=== PATIENT | female | born 1945 | race Caucasian/White ===

== ENCOUNTER → 2016-12-03 | Outpatient (CLI) | payer MEDICARE ==
--- NOTE | 2016-12-05 12:29 | MM ---
Reason for exam: screening (asymptomatic). Last mammogram was performed 1 year and 1 month ago. History: Patient is postmenopausal. Family history of breast cancer in sister at age 59. Benign stereotactic core biopsy of the left breast, June 18, 2002. Cyst aspiration of the left breast. Excisional biopsy of the right breast. Took hormonal contraceptives for 3 years beginning at age 23. Took estrogen for 8 years beginning at age 48. Physical Findings: A clinical breast exam by your physician is recommended on an annual basis and results should be correlated with mammographic findings. MG 3D Screening Mammo W/Cad Bilateral CC and MLO view(s) were taken. Prior study comparison: November 14, 2015, bilateral MG screening mammo w CAD. October 28, 2014, bilateral MG screening mammo w CAD. October 21, 2013, bilateral digital screening mammo w/CAD. There are scattered fibroglandular densities. Previous mammotome biopsy in the left breast. No significant changes when compared with prior studies. ASSESSMENT: Negative, BI-RAD 1 RECOMMENDATION: Routine screening mammogram of both breasts in 1 year.
== END | disposition home or self-care (01) ==
LOC: RADMAMWWP 10:46
PROVIDERS: ATTEND Obstetrics & Gynecology
DX: Z12.31 Encounter for screening mammogram for malignant neoplasm of breast (principal); Z80.3 Family history of malignant neoplasm of breast
CPT/HCPCS: 77063; G0202

== ENCOUNTER → 2018-01-02 | Outpatient (CLI) | payer MEDICARE ==
--- NOTE | 2018-01-02 14:57 | BD ---
EXAMINATION TYPE: MG DEXA axial skeleton. DATE OF EXAM: 01/02/2018 COMPARISON: NONE CLINICAL HISTORY: Height: 66 Weight: 173.3 FRAX RISK QUESTIONS: Alcohol (3 or more units per day): no Family History (Parent hip fracture): no Glucocorticoids (More than 3mos): no (Ex: prednisone, prednisolone, methylprednisolone, dexamethasone, and hydrocortisone). History of Fracture in Adulthood: yes Secondary Osteoporosis: 1. Type 1 Diabetes: no 2. Hyperthyroidism: no 3. Menopause before 45: no 4. Malnutrition: no 5. Chronic liver disease: no Rheumatoid Arthritis: no Current Tobacco Use: no RISK FACTORS HISTORY OF: Surgery to Spine/Hip(right/left)/Wrist (right/left): bilateral hip replacements lumbar surgery-unsure of date Family History of Osteoporosis: no Active: yes Diet low in dairy products/other sources of calcium: yes Postmenopausal woman: menopause at 48 Lost more than 2 inches in height since high school: yes Adrenal Insufficiency: no MEDICATIONS: pain patch, Neurontin, percaset, repinorol. carvidural, prilosec, curtrilene, vitamins Additional History: EXAM MEASUREMENTS: Bone mineral densitometry was performed using the [employer] System. Bone mineral density about the L Wrist (g/cm2): 0.401 T Score values are as follows: -----Dist. R+U: -1.5 -----Prox. R+U: -2.3 -----Radius total: -2.5 Bone mineral density has: decreased -11.5 % since study of: 12.21.2012 IMPRESSION: osteoporosis NOTE: T-SCORE=SD OF THE YOUNG ADULT MEAN.
--- NOTE | 2018-01-06 08:00 | MM ---
Reason for exam: screening (asymptomatic). Last mammogram was performed 1 year and 1 month ago. History: Patient is postmenopausal. Family history of breast cancer in sister at age 59. Benign stereotactic core biopsy of the left breast, June 18, 2002. Cyst aspiration of the left breast. Excisional biopsy of the right breast. Took hormonal contraceptives for 3 years beginning at age 23. Took estrogen for 8 years beginning at age 48. Physical Findings: A clinical breast exam by your physician is recommended on an annual basis and results should be correlated with mammographic findings. MG 3D Screening Mammo W/Cad Bilateral CC and MLO view(s) were taken. Prior study comparison: December 05, 2016, bilateral MG 3d screening mammo w/cad. November 14, 2015, bilateral MG screening mammo w CAD. There are scattered fibroglandular densities. Previous mammotome biopsy in the left breast. No significant changes when compared with prior studies. ASSESSMENT: Negative, BI-RAD 1 RECOMMENDATION: Routine screening mammogram of both breasts in 1 year.
== END | disposition home or self-care (01) ==
LOC: RADMAMWWP 12:33
PROVIDERS: ATTEND Obstetrics & Gynecology
DX: Z12.31 Encounter for screening mammogram for malignant neoplasm of breast (principal); M81.0 Age-related osteoporosis without current pathological fracture; N95.1 Menopausal and female climacteric states; Z80.3 Family history of malignant neoplasm of breast
CPT/HCPCS: 77063; 77067; 77081

== ENCOUNTER 2018-02-02 13:56 | Inpatient (IN) | payer MEDICARE ==
[2018-02-02] MEDS ORDERED: MORPHINE SULFATE 4 MG/0.8 ML SYRINGE (INJ) IVP STA (14:08)
[2018-02-02] MEDS ORDERED: LORazepam 2 MG/ML INJ IV STA (14:08)
--- NOTE | 2018-02-02 14:12 | ED ---
Abdominal Pain HPI - General Stated Complaint: Abd Pain Time Seen by Provider: 02/02/18 14:00 Source: patient, EMS, RN notes reviewed, old records reviewed Mode of arrival: EMS - History of Present Illness Initial Comments: This is a 72-year-old female with a history of multiple small bowel obstructions in the past she relates this to be secondary to having her cecum tacked up to a perforated ulcer she had the past who states she had the onset at 10 AM this morning of abdominal pain was progressive nausea vomiting around 12:30 this afternoon. She states the pain is worse was 7/10 currently is 5/10 she did have 1 episode nausea vomiting and route she was given 4 mg of Zofran with some relief. She denies any fevers chills or sweats. She states it feels like her previous bowel obstructions. Of note she did have a large normal bowel movement earlier today but this did not seem to relate at all to the pain or relieve it. No dysuria no hematuria no flank pain no shortness breath no cough or other symptoms no dysuria no hematuria. No other modifying factors at this time MD Complaint: abdominal pain - Related Data Home Medications Medication Instructions Recorded Confirmed Ascorbic Acid [Vitamin C] 1,000 mg PO DAILY 03/14/15 02/02/18 Carisoprodol [Soma] 350 mg PO TID 03/14/15 02/02/18 Carvedilol [Coreg] 25 mg PO BID 03/14/15 02/02/18 Cholecalciferol [Vitamin D3] 5,000 unit PO DAILY 03/14/15 02/02/18 Cyanocobalamin [Vitamin B-12] 1,000 mcg PO DAILY 03/14/15 02/02/18 Gabapentin [Neurontin] 100 mg PO TID 03/14/15 02/02/18 Levothyroxine Sodium [Synthroid] 175 mcg PO DAILY 03/14/15 02/02/18 Lovastatin [Mevacor] 40 mg PO HS 03/14/15 02/02/18 Multivitamins, Thera [Theragran] 1 tab PO DAILY 03/14/15 02/02/18 [place]-3 Fatty Acids [[place]-3] 1,000 mg PO BID 03/14/15 02/02/18 Omeprazole 40 mg PO DAILY 03/14/15 02/02/18 Sertraline [Zoloft] 100 mg PO HS 03/14/15 02/02/18 Zolpidem [Ambien] 10 mg PO HS PRN 03/14/15 02/02/18 fentaNYL 75MCG/HR PATCH [Duragesic 75 mcg TRANSDERM Q72H 03/14/15 02/02/18 75Mcg/Hr Patch] oxyCODONE HCL/ACETAMINOPHEN 1 tab PO Q6HR PRN 03/14/15 02/02/18 [Percocet 10-325 mg] rOPINIRole HCL [Requip] 2 mg PO TID 03/14/15 02/02/18 Calcium Carbonate 1,500 mg PO DAILY 02/02/18 02/02/18 Magnesium Oxide [Hanson] 1,000 mg PO DAILY 02/02/18 02/02/18 Allergies Allergy/AdvReac Type Severity Reaction Status Date / Time citalopram hydrobromide Allergy Itching Verified 02/02/18 15:14 [From Celexa] diazepam [From Valium] Allergy CHANGE IN Verified 02/02/18 15:14 MENTATION HEAVY METALS Allergy Unknown Uncoded 05/18/15 09:12 Review of Systems ROS Statement: Those systems with pertinent positive or pertinent negative responses have been documented in the HPI. ROS Other: All systems not noted in ROS Statement are negative. Past Medical History Past Medical History: COPD, Fibromyalgia, GERD/Reflux, Hyperlipidemia, Hypertension, Osteoarthritis (OA), Pneumonia, Skin Disorder, Thyroid Disorder Additional Past Medical History / Comment(s): bowel obstructionX8, broken heart syndrome, restless leg syndrome, scoliosis, HEPATITIS A? A CHILD,peptic ulcers, chronic back pain, HX OFgoiter, hashimotos, metalosis, pulmonary hypertension, SKIN DISORDER, ANNULARY GRANULOMA History of Any Multi-Drug Resistant Organisms: None Reported Past Surgical History: Back Surgery, Heart Catheterization, Hernia Repair, Joint Replacement, Orthopedic Surgery, Tubal Ligation Additional Past Surgical History / Comment(s): total thyroidectomy, rt knee arthroscopy, mildred knee replacements, mildred hip replacements with a revison to rt, lumbar fusion l1-s1, cervical fusion,lipoma removed ltarm, pain clinic procedures, neuro stimulator implanted, exploratory laparotomy, cecopexy, biopsy of mesenteric lymph node. Past Anesthesia/Blood Transfusion Reactions: Postoperative Nausea & Vomiting ( PONV) Additional Past Anesthesia/Blood Transfusion Reaction / Comment(s): HX OF ASPIRATION WITH CERVICAL FUSION, Past Psychological History: Anxiety, Depression Additional Psychological History / Comment(s): pt lives by herself, 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 Smoking Status: Former smoker Past Alcohol Use History: Rare Additional Past Alcohol Use History / Comment(s): smoked x 10 years 1ppd, quit in 1990 Past Drug Use History: None Reported - Past Family History Father Family Medical History: Diabetes Mellitus Mother Family Medical History: COPD, Rheumatoid Arthritis (RA) Additional Family Medical History / Comment(s): emphysema, cervical fusions Sister(s) Family Medical History: Cancer, Deep Vein Thrombosis (DVT) Additional Family Medical History / Comment(s): ONE SISTER HX OF DVT, ONE SISTER BREAST CA General Exam - General Exam Comments Initial Comments: This is a well-developed well-nourished awake alert oriented 3 female General appearance: alert, anxious Head exam: Present: atraumatic, normocephalic, normal inspection Eye exam: Present: normal appearance, PERRL, EOMI. Absent: scleral icterus, conjunctival injection, periorbital swelling ENT exam: Present: normal exam, mucous membranes moist Neck exam: Present: normal inspection. Absent: tenderness, meningismus, lymphadenopathy Respiratory exam: Present: normal lung sounds bilaterally. Absent: respiratory distress, wheezes, rales, rhonchi, stridor Cardiovascular Exam: Present: regular rate, normal rhythm, normal heart sounds. Absent: systolic murmur, diastolic murmur, rubs, gallop, clicks GI/Abdominal exam: Present: soft, tenderness, hypoactive bowel sounds. Absent: distended, guarding, rebound, rigid, bruit (Tennis palpation especially over the lower abdomen well-healed surgical scar noted no definite guarding or rebound), pulsatile mass, hernia Rectal exam: Present: deferred Extremities exam: Present: normal inspection, full ROM, normal capillary refill. Absent: tenderness, pedal edema, joint swelling, calf tenderness Back exam: Present: normal inspection Neurological exam: Present: alert, oriented X3, CN II-XII intact Psychiatric exam: Present: normal affect, normal mood Skin exam: Present: warm, dry, intact, normal color. Absent: rash Course Vital Signs 02/02/18 02/02/18 14:15 15:54 Temperature 98.6 F Pulse Rate 55 L 55 L Respiratory 18 18 Rate Blood Pressure 167/83 129/59 O2 Sat by Pulse 92 L 93 L Oximetry - Reevaluation(s) Reevaluation #1: 02/02/18 14:12 Patient is concerned that she threw her medications up and she will develop restless leg syndrome because of the pain which is her normal sequence she states. She can take Ativan she will be given a small dose. Reevaluation #2: 02/02/18 16:15 The patient has a deviated septum and would prefer not to have an NG tube at this time she will get one if she has persistent nausea vomiting. Medical Decision Making - Medical Decision Making I did discuss findings with patient and with Dr. Fabian her the patient will be admitted CAT scan is ordered and pending. I did discuss the findings also the patient she request Dr. Milton - Lab Data Result diagrams: 02/02/18 14:15 02/02/18 14:15 Lab Results 02/02/18 02/02/18 02/02/18 Range/Units 14:15 14:15 14:15 WBC 8.6 (3.8-10.6) k/uL RBC 4.50 (3.80-5.40) m/uL Hgb 13.8 (11.4-16.0) gm/dL Hct 42.1 (34.0-46.0) % MCV 93.5 (80.0-100.0) fL MCH 30.6 (25.0-35.0) pg MCHC 32.7 (31.0-37.0) g/dL RDW 13.3 (11.5-15.5) % Plt Count 207 (150-450) k/uL Neutrophils % 87 % Lymphocytes % 5 % Monocytes % 6 % Eosinophils % 1 % Basophils % 0 % Neutrophils # 7.4 (1.3-7.7) k/uL Lymphocytes # 0.4 L (1.0-4.8) k/uL Monocytes # 0.5 (0-1.0) k/uL Eosinophils # 0.1 (0-0.7) k/uL Basophils # 0.0 (0-0.2) k/uL PT (9.0-12.0) sec INR (<1.2) APTT (22.0-30.0) sec Sodium 145 (137-145) mmol/L Potassium 4.1 (3.5-5.1) mmol/L Chloride 103 (98-107) mmol/L Carbon Dioxide 28 (22-30) mmol/L Anion Gap 14 mmol/L BUN 25 H (7-17) mg/dL Creatinine 0.90 (0.52-1.04) mg/dL Est GFR (CKD-EPI)AfAm 75 (>60 ml/min/1.73 sqM) Est GFR (CKD-EPI)NonAf 65 (>60 ml/min/1.73 sqM) Glucose 103 H (74-99) mg/dL Plasma Lactic Acid Malik (0.7-2.0) mmol/L Calcium 9.6 (8.4-10.2) mg/dL Magnesium 1.8 (1.6-2.3) mg/dL Total Bilirubin 0.7 (0.2-1.3) mg/dL AST 25 (14-36) U/L ALT 20 (9-52) U/L Alkaline Phosphatase 107 (38-126) U/L Total Creatine Kinase 59 (30-135) U/L CK-MB (CK-2) 1.8 (0.0-2.4) ng/mL CK-MB (CK-2) Rel Index 3.1 Troponin I <0.012 (0.000-0.034) ng/mL Total Protein 6.7 (6.3-8.2) g/dL Albumin 4.1 (3.5-5.0) g/dL Amylase 56 (30-110) U/L Lipase 38 (23-300) U/L 02/02/18 02/02/18 Range/Units 14:15 14:15 WBC (3.8-10.6) k/uL RBC (3.80-5.40) m/uL Hgb (11.4-16.0) gm/dL Hct (34.0-46.0) % MCV (80.0-100.0) fL MCH (25.0-35.0) pg MCHC (31.0-37.0) g/dL RDW (11.5-15.5) % Plt Count (150-450) k/uL Neutrophils % % Lymphocytes % % Monocytes % % Eosinophils % % Basophils % % Neutrophils # (1.3-7.7) k/uL Lymphocytes # (1.0-4.8) k/uL Monocytes # (0-1.0) k/uL Eosinophils # (0-0.7) k/uL Basophils # (0-0.2) k/uL PT 10.0 (9.0-12.0) sec INR 1.0 (<1.2) APTT 25.4 (22.0-30.0) sec Sodium (137-145) mmol/L Potassium (3.5-5.1) mmol/L Chloride (98-107) mmol/L Carbon Dioxide (22-30) mmol/L Anion Gap mmol/L BUN (7-17) mg/dL Creatinine (0.52-1.04) mg/dL Est GFR (CKD-EPI)AfAm (>60 ml/min/1.73 sqM) Est GFR (CKD-EPI)NonAf (>60 ml/min/1.73 sqM) Glucose (74-99) mg/dL Plasma Lactic Acid Malik 1.5 (0.7-2.0) mmol/L Calcium (8.4-10.2) mg/dL Magnesium (1.6-2.3) mg/dL Total Bilirubin (0.2-1.3) mg/dL AST (14-36) U/L ALT (9-52) U/L Alkaline Phosphatase (38-126) U/L Total Creatine Kinase (30-135) U/L CK-MB (CK-2) (0.0-2.4) ng/mL CK-MB (CK-2) Rel Index Troponin I (0.000-0.034) ng/mL Total Protein (6.3-8.2) g/dL Albumin (3.5-5.0) g/dL Amylase (30-110) U/L Lipase (23-300) U/L - Radiology Data Radiology results: report reviewed (I did review the imaging and report or is nonspecific gas pattern hour does look like multiple air-fluid levels consistent with early small bowel obstruction.), image reviewed Interpreted by me: I did review the imaging is evidence of air-fluid levels. Disposition Clinical Impression: Small bowel obstruction, Dehydration, Abdominal pain Disposition: ADMITTED IP TO THIS [facility] Condition: Stable Referrals: Geo Low MD [Primary Care Provider] - 1-2 days
[2018-02-02 14:40] LABS: Basophils % (A) 0 %; Eosinophils # (A) 0.1 k/uL (0-0.7); Eosinophils % (A) 1 %; HCT 42.1 % (34.0-46.0); HGB 13.8 gm/dL (11.4-16.0); Lymphocytes # (A) 0.4 k/uL (1.0-4.8); Lymphocytes % (A) 5 %; MCH 30.6 pg (25.0-35.0); MCHC 32.7 g/dL (31.0-37.0); MCV 93.5 fL (80.0-100.0); Mean Platelet Volume 7.5; Monocytes # (A) 0.5 k/uL (0-1.0); Monocytes % (A) 6 %; Neutrophils # (A) 7.4 k/uL (1.3-7.7); Neutrophils % (A) 87 %; Platelet Count 207 k/uL (150-450); RDW 13.3 % (11.5-15.5); WBC 8.6 k/uL (3.8-10.6)
[2018-02-02 14:51] LABS: Albumin 4.1 g/dL (3.5-5.0); Calcium 9.6 mg/dL (8.4-10.2); Magnesium 1.8 mg/dL (1.6-2.3); Partial Thromboplastin Time 25.4 sec (22.0-30.0); Potassium 4.1 mmol/L (3.5-5.1); Total Bilirubin 0.7 mg/dL (0.2-1.3); Total Protein 6.7 g/dL (6.3-8.2)
[2018-02-02 14:56] LABS: Creatine Kinase 59 U/L (30-135)
[2018-02-02 15:09] LABS: Creatine Kinase MB 1.8 ng/mL (0.0-2.4); Troponin I <0.012 ng/mL (0.000-0.034)
--- NOTE | 2018-02-02 15:20 | XR ---
EXAMINATION TYPE: XR abdomen 2V DATE OF EXAM: 02/02/2018 CLINICAL HISTORY: Abdominal pain with progressive vomiting today TECHNIQUE: Supine and upright views of the abdomen are obtained. COMPARISON: Acute abdominal series March 17, 2015. CT abdomen and pelvis March 14, 2015 FINDINGS: There is prominent stomach with air-fluid level. There is gas prominent proximal small rosa l loops in the central abdomen with air-fluid levels. Gas is seen in nondistended distal small bowel loops. There is no pneumoperitoneum or suspicious calcification. Spinal spine stimulator device is r edemonstrated. Metallic hardware from bilateral hip arthroplasty is redemonstrated. There is extensiv e surgical change in the lumbar spine with underlying scoliosis. There is left basilar linear scarrin g or atelectasis. IMPRESSION: Overall nonspecific bowel gas pattern. Cannot rule out developing mid small bowel obstru ction.
[2018-02-02] MEDS ORDERED: RX INFO: IV CONTRAST WAS GIVEN 1 EACH MISC MISCELLANE PRN (15:24)
[2018-02-02] MEDS ORDERED: SODIUM CHLORIDE 0.9% 1,000 ML IV STA (15:24)
[2018-02-02] MEDS ORDERED: IOPAMIDOL-300 CONTRAST 30 ML VIAL (ORAL USE) PO PRN (15:24)
[2018-02-02] MEDS ORDERED: NALOXONE 0.4 MG/ML 1 ML VIAL IV PRN (16:17)
[2018-02-02] MEDS ORDERED: ONDANSETRON 4 MG/2 ML VIAL IVP PRN (16:17)
[2018-02-02] MEDS ORDERED: MORPHINE SULFATE 4 MG/ML SYRINGE IVP PRN (16:17)
[2018-02-02] MEDS: LORazepam 2 MG/ML INJ IV PRN (17:24)
--- NOTE | 2018-02-02 17:45 | CT ---
EXAMINATION TYPE: CT abdomen pelvis w con DATE OF EXAM: 02/02/2018 HISTORY: Generalized abdominal pain with nausea and vomiting. History of bowel obstructions. CT DLP: 1265mGycm Automated Exposure Control for Dose Reduction was Utilized. CONTRAST: CT scan of the abdomen and pelvis is performed with IV Contrast, patient injected with 100 mL of Isov ue M300. COMPARISON: CT abdomen and pelvis March 14, 2015. Same-day abdominal x-ray FINDINGS: LUNG BASES: There is bibasilar linear scarring and/or atelectasis. LIVER/GB: Small amount of perihepatic ascites anteriorly and posteriorly is more prominent from prior . PANCREAS: No significant abnormality is seen. SPLEEN: No significant abnormality is seen. ADRENALS: No significant abnormality is seen. KIDNEYS: Bilateral renal calculi are seen more numerous in the left kidney. BOWEL: Oral contrast extends to the mid small bowel level. Contrast is seen in prominent stomach. The re is no suspicious dilatation of duodenal sweep. Proximal jejunal loops are mildly prominent. There are more prominent in dilated mid small bowel loops enter contrast and fluid-filled. There are dilate d fluid-filled distal small bowel loops with multiple air-fluid levels. Fecal material is seen in non distended colon along the periphery. Terminal ileum is decompressed in the right lower quadrant. UTERUS/ADNEXA: Uterus is not well seen and may be surgically absent. LYMPH NODES: No greater than 1cm abdominal or pelvic lymph nodes are appreciated. OSSEOUS STRUCTURES: Metallic hardware from bilateral hip arthroplasties causes streak artifact limiti ng evaluation of pelvic structures. Extensive surgical hardware in the lumbar spine is redemonstrated . There is persistent rotary scoliosis. Spinal stimulator device is redemonstrated. OTHER: Numerous coils left inguinal region are likely product of prior hernia repair surgery. Promine nce of the ventral wall is redemonstrated. IMPRESSION: Findings are consistent with developing distal small bowel obstruction. Transition point is not clearly identified as there is suboptimal evaluation of pelvis due to metallic hardware from h ip surgery. Consider NG tube placement and surgical consultation.
--- NOTE | 2018-02-02 18:38 | P.HPIM ---
History of Present Illness H&P Date: 02/02/18 Chief Complaint: small bowel obstruction This is a 72-year-old female one of Dr. Low with a previous medical history significant for osteoarthritis with multiple joint replacement and multiple orthopedic surgeries in the past along with chronic low back pain and back surgery as well as chronic pain syndrome with hypertension and hypertensive cardio vascular disease, restless leg syndrome, hypothyroidism, recurrent small bowel obstruction, heavy metal toxicity, broken heart syndrome, patient was in her usual state of health about yesterday when she had a few [place] and cranberry scones along with almond, woke up today the morning complaining of increase in bowel pain associated with increased nausea with significant heartburn and she had vomited once and she ended up coming to the emergency room because she has had multiple bowel obstruction and she goes the symptoms patient ended up coming to the ER had x-ray of the abdomen that showed small bowel obstruction this was followed by a computed tomography scan of the abdomen and pelvis that showed a distal small bowel obstruction with transition cannot be delineated at this point in time, NG tube was placed and the patient was admitted to the hospital Gen. surgeon consultation was obtained. Review of Systems Constitutional: Reports chronic headaches, Reports chronic pain, Reports weight gain, Denies lethargy, Denies weakness, Denies weight loss Eyes: denies blurred vision, denies bulging eye, denies decreased vision Ears: deny: decreased hearing Ears, nose, mouth and throat: Denies dysphagia, Denies neck lump, Denies sore throat Cardiovascular: Reports high blood pressure, Denies chest pain, Denies decreased exercise tolerance, Denies dyspnea on exertion, Denies rapid heart beat, Denies shortness of breath, Denies syncope Respiratory: Denies congestion, Denies cough with sputum, Denies home oxygen, Denies sleep apnea, Denies snoring, Denies wheezing Gastrointestinal: Reports abdominal pain, Reports belching, Reports bloating, Reports dyspepsia, Reports heartburn, Reports nausea, Reports vomiting, Denies melena Genitourinary: Denies dysuria, Denies hematuria Menstruation: Reports postmenopausal Musculoskeletal: Reports low back pain Musculoskeletal: bilateral: foot pain, foot stiffness, hand stiffness, hip stiffness, hip swelling, knee pain, knee stiffness, shoulder pain, shoulder stiffness, wrist pain, wrist stiffness, absent: ankle pain, ankle stiffness, ankle swelling, elbow pain, elbow stiffness, elbow swelling, foot swelling, hand pain, hand swelling, hip pain, wrist swelling Integumentary: Denies pruritus, Denies rash Neurological: Denies numbness, Denies weakness Psychiatric: Denies anxiety, Denies depression Endocrine: Denies fatigue, Denies weight change Past Medical History Past Medical History: Asthma, Chest Pain / Angina, COPD, GERD/Reflux, Hyperlipidemia, Hypertension, Osteoarthritis (OA), Pneumonia, Skin Disorder, Thyroid Disorder Additional Past Medical History / Comment(s): bowel obstruction 12, broken heart syndrome, restless leg syndrome, scoliosis, HEPATITIS A? A CHILD, peptic ulcers, chronic back pain, HX OF goiter, kiko, ANNULARY GRANULOMA, osteoporosis, djd, rls, History of Any Multi-Drug Resistant Organisms: None Reported Past Surgical History: Back Surgery, Heart Catheterization, Hernia Repair, Joint Replacement, Orthopedic Surgery, Tubal Ligation Additional Past Surgical History / Comment(s): total thyroidectomy, rt knee arthroscopy, mildred knee replacements, mildred hip replacements with a revison to rt, lumbar fusion l1-s1, cervical fusion,lipoma removed ltarm, pain clinic procedures, neuro stimulator implanted, exploratory laparotomy, cecopexy, biopsy of mesenteric lymph node- neg, breast bx mildred-neg,repair of perforated ulcer(sx done at [facility]), mildred foot reconstructive sx -rt side done x2 Past Anesthesia/Blood Transfusion Reactions: Postoperative Nausea & Vomiting ( PONV) Additional Past Anesthesia/Blood Transfusion Reaction / Comment(s): HX OF ASPIRATION WITH CERVICAL FUSION, Smoking Status: Former smoker - Past Family History Father Family Medical History: Diabetes Mellitus (father at age of 62 from diabetes and congestive heart failure.) Mother Family Medical History: COPD, Rheumatoid Arthritis (RA) (mother at age of 68 from chronic obstructive pulmonary disease and rheumatoid arthritis.) Additional Family Medical History / Comment(s): emphysema, cervical fusions Sister(s) Family Medical History: Cancer, Deep Vein Thrombosis (DVT) (patient has 3 sisters all are living one with DVT the other one with breast cancer.) Additional Family Medical History / Comment(s): ONE SISTER HX OF DVT, ONE SISTER BREAST CA Daughter(s) Family Medical History: No Reported History (patient has a daughter no major medical problem) Son(s) Family Medical History: No Reported History (patient has 2 sons no major medical problems) Medications and Allergies Home Medications Medication Instructions Recorded Confirmed Type Ascorbic Acid [Vitamin C] 1,000 mg PO DAILY 03/14/15 02/02/18 History Carisoprodol [Soma] 350 mg PO TID 03/14/15 02/02/18 History Carvedilol [Coreg] 25 mg PO BID 03/14/15 02/02/18 History Cholecalciferol [Vitamin D3] 5,000 unit PO DAILY 03/14/15 02/02/18 History Cyanocobalamin [Vitamin B-12] 1,000 mcg PO DAILY 03/14/15 02/02/18 History Gabapentin [Neurontin] 100 mg PO TID 03/14/15 02/02/18 History Levothyroxine Sodium [Synthroid] 175 mcg PO DAILY 03/14/15 02/02/18 History Lovastatin [Mevacor] 40 mg PO HS 03/14/15 02/02/18 History Multivitamins, Thera [Theragran] 1 tab PO DAILY 03/14/15 02/02/18 History [place]-3 Fatty Acids [[place]-3] 1,000 mg PO BID 03/14/15 02/02/18 History Omeprazole 40 mg PO DAILY 03/14/15 02/02/18 History Sertraline [Zoloft] 100 mg PO HS 03/14/15 02/02/18 History Zolpidem [Ambien] 10 mg PO HS PRN 03/14/15 02/02/18 History fentaNYL 75MCG/HR PATCH [Duragesic 75 mcg TRANSDERM Q72H 03/14/15 02/02/18 History 75Mcg/Hr Patch] oxyCODONE HCL/ACETAMINOPHEN 1 tab PO Q6HR PRN 03/14/15 02/02/18 History [Percocet 10-325 mg] rOPINIRole HCL [Requip] 2 mg PO TID 03/14/15 02/02/18 History Calcium Carbonate 1,500 mg PO DAILY 02/02/18 02/02/18 History Magnesium Oxide [Hanson] 1,000 mg PO DAILY 02/02/18 02/02/18 History Allergies Allergy/AdvReac Type Severity Reaction Status Date / Time citalopram hydrobromide Allergy Itching Verified 02/02/18 15:14 [From Celexa] diazepam [From Valium] Allergy CHANGE IN Verified 02/02/18 15:14 MENTATION HEAVY METALS Allergy Unknown Uncoded 05/18/15 09:12 Physical Exam Vitals: Vital Signs Temp Pulse Resp BP Pulse Ox 02/02/18 17:26 64 18 175/84 92 L 02/02/18 15:54 55 L 18 129/59 93 L 02/02/18 14:15 98.6 F 55 L 18 167/83 92 L Intake and Output 02/02/18 02/02/18 02/02/18 06:59 14:59 22:59 Other: Weight 79.379 kg - Constitutional General appearance: average body habitus, mild distress - EENT Eyes: anicteric sclerae, EOMI, PERRLA, no ptosis, no scleral icterus, normal appearance ENT: hearing grossly normal, NA/AT, normal oropharynx, no thrush - Neck Neck: no lymphadenopathy, normal ROM, no rigidity, no stridor, no thyromegaly Carotids: bilateral: upstroke normal Thyroid: bilateral: normal size - Respiratory Respiratory: bilateral: diminished, negative: dullness, rales, rhonchi, wheezing , prolonged expiration, prolonged inspiration - Cardiovascular Rhythm: regular Heart sounds: normal: S1, S2 Abnormal Heart Sounds: systolic murmur, no S3 Gallop - Gastrointestinal General gastrointestinal: distended, hyperactive bowel sounds, tenderness, no umbilical hernia, no ventral hernia - Integumentary Integumentary: normal, normal turgor - Neurologic Neurologic: CNII-XII intact - Musculoskeletal Musculoskeletal: strength equal bilaterally - Psychiatric Psychiatric: A&O x's 3, appropriate affect, intact judgment & insight Results CBC & Chem 7: 02/02/18 14:15 02/02/18 14:15 Labs: Abnormal Lab Results - Last 24 Hours (Table) 02/02/18 02/02/18 Range/Units 14:15 14:15 Lymphocytes # 0.4 L (1.0-4.8) k/uL BUN 25 H (7-17) mg/dL Glucose 103 H (74-99) mg/dL Thrombosis Risk Factor Assmnt - DVT/VTE Prophylaxis DVT/VTE Prophylaxis: Pharmacologic Prophylaxis ordered, Mechanical Prophylaxis ordered Assessment and Plan Assessment: Assessment and plan: 1. Small bowel obstruction. NG tube in place, started the patient on IV fluid resuscitation the form of D5 half-normal saline with 20 KCl at 125 mL an hour, continue pain management with morphine 2 mg IV push every 4 hours as needed, continue patient on Zofran 4 mg push every 4 hours as needed, general surgery consultation, nothing per mouth at this point. 2. Hypertension and hypertensive cardiovascular disease. Hold off Coreg for now monitor the patient blood pressure very closely. We may start the patient on Vasotec 1.25 mg IV push every every 6 hours as needed for systolic greater than 160. 3. Hypothyroidism. Switch the patient to Synthroid 75 g IV push every 24 hours. 4. Hyperlipidemia. Hold off lovastatin. 5. Chronic pain syndrome. Continue fentanyl patch 75 g every 72 hours, continue with morphine 2 mg IV push every 4 hours as needed. 6. 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 Stable at this time. 7. Pulmonary hypertension with a prior history of broken heart syndrome stable at this time. 8. Severe GERD. Continue patient on Protonix 40 mg IV push every 24 hours. 9. DVT prophylaxis. Lovenox 40 mg subcutaneously every 24 hours. 10. GI prophylaxis. Continue patient on Protonix 40 mg IV push every 24 hours. 11. Patient is full code per 12. Admit to inpatient. Estimate a length of stay 2 midnights.
[2018-02-02 18:58] LABS: Appearance,Urine Clear (Clear); Bilirubin,Urine Negative (Negative); Blood,Urine Negative (Negative); Color,Urine Yellow; Glucose,Urine (UA) Negative (Negative); Ketones,Urine 1+ (Negative); Leukocyte Esterase,Urine Negative (Negative); Nitrite,Urine Negative (Negative); Protein,Urine Trace (Negative); Specific Gravity,Urine 1.038 (1.001-1.035); Urobilinogen,Urine <2.0 mg/dL (<2.0)
[2018-02-02] MEDS: MORPHINE SULFATE 4 MG/ML SYRINGE IVP PRN (20:25)
[2018-02-02] MEDS: SODIUM CHLORIDE 0.9% 1,000 ML IV SCH (21:12)
[2018-02-02] MEDS: PANTOPRAZOLE 40 MG/10 ML VIAL IV SCH (21:12)
[2018-02-03] MEDS: MORPHINE SULFATE 4 MG/ML SYRINGE IVP PRN ×3 (00:38→16:52)
[2018-02-03] MEDS: LORazepam 2 MG/ML INJ IV PRN ×3 (03:14→21:05)
[2018-02-03 08:33] LABS: HGB 11.4 gm/dL (11.4-16.0); MCH 30.5 pg (25.0-35.0); MCHC 32.6 g/dL (31.0-37.0); MCV 93.6 fL (80.0-100.0); Mean Platelet Volume 7.8; Platelet Count 158 k/uL (150-450); RBC 3.74 m/uL (3.80-5.40); RDW 13.5 % (11.5-15.5); WBC 4.1 k/uL (3.8-10.6)
[2018-02-03 09:05] LABS: Albumin 3.1 g/dL (3.5-5.0); Calcium 8.5 mg/dL (8.4-10.2); Potassium 3.9 mmol/L (3.5-5.1); Total Bilirubin 0.8 mg/dL (0.2-1.3); Total Protein 5.4 g/dL (6.3-8.2)
[2018-02-03] MEDS: SODIUM CHLORIDE 0.9% 1,000 ML IV SCH ×4 (09:13→23:30)
[2018-02-03] MEDS: PANTOPRAZOLE 40 MG/10 ML VIAL IV SCH ×2 (09:22→20:35)
[2018-02-03] MEDS: ENOXAPARIN 40 MG/0.4 ML SYRINGE SQ SCH (09:22)
[2018-02-03 09:35] LABS: Band Neutrophils % 10 %; Eosinophils # (M) 0.16 k/uL (0-0.7); Hypochromasia (M) Present; Lymphocytes # (M) 0.94 k/uL (1.0-4.8); Monocytes # (M) 0.45 k/uL (0-1.0); Neutrophils % (M) 52 %; Nucleated Red Blood Cells 0 /100 WBC (0-0); Total Cells Counted 100
--- NOTE | 2018-02-03 12:53 | P.GSCN ---
History of Present Illness Consult date: 02/03/18 Reason for Consult: Bowel obstruction History of present illness: Patient is a 72-year-old female with a history of prior small bowel obstruction. She states that she has had 12 different bowel obstructions in the past. During one of her earlier episodes she had an exploratory laparotomy with a cecopexy done by Dr. Patiño. Her only other abdominal exploration was for a perforated ulcer in the past. Her last episode was 1-2 years ago. She began feeling ill yesterday morning. Her pain and distention along with vomiting progressed through the day. She did have a normal bowel movement yesterday. CAT scan was reviewed and does show evidence of small bowel obstruction. Nasogastric tube was placed. Between vomiting and the nasogastric tube placement she had over 1 L output. She does feel somewhat better today. She is not interested in surgical intervention if this can be avoided as she has a trip planned later this month. White blood cell count normal however the patient does have 10% bands on today CBC. No tachycardia. No fevers. Review of Systems The patient denies any acute changes in vision or hearing, no dysphagia or odynophagia, no chest pain or shortness of breath, no dysuria or hematuria, no headache, no runny nose, no rectal bleeding or melena, no unexplained weight loss Past Medical History Past Medical History: Asthma, Chest Pain / Angina, COPD, GERD/Reflux, Hyperlipidemia, Hypertension, Osteoarthritis (OA), Pneumonia, Skin Disorder, Thyroid Disorder Additional Past Medical History / Comment(s): bowel obstruction 12, broken heart syndrome, restless leg syndrome, scoliosis, HEPATITIS A? A CHILD, peptic ulcers, chronic back pain, HX OF goiter, kiko, ANNULARY GRANULOMA, osteoporosis, djd, rls, History of Any Multi-Drug Resistant Organisms: None Reported Past Surgical History: Back Surgery, Heart Catheterization, Hernia Repair, Joint Replacement, Orthopedic Surgery, Tubal Ligation Additional Past Surgical History / Comment(s): total thyroidectomy, rt knee arthroscopy, mildred knee replacements, mildred hip replacements with a revison to rt, lumbar fusion l1-s1, cervical fusion,lipoma removed ltarm, pain clinic procedures, neuro stimulator implanted, exploratory laparotomy, cecopexy, biopsy of mesenteric lymph node- neg, breast bx mildred-neg,repair of perforated ulcer(sx done at [facility]), mildred foot reconstructive sx -rt side done x2 Past Anesthesia/Blood Transfusion Reactions: Postoperative Nausea & Vomiting ( PONV) Additional Past Anesthesia/Blood Transfusion Reaction / Comm: HX OF ASPIRATION WITH CERVICAL FUSION, Smoking Status: Former smoker - Past Family History Daughter(s) Family Medical History: No Reported History (patient has a daughter no major medical problem) Son(s) Family Medical History: No Reported History (patient has 2 sons no major medical problems) Father Family Medical History: Diabetes Mellitus (father at age of 62 from diabetes and congestive heart failure.) Mother Family Medical History: COPD, Rheumatoid Arthritis (RA) (mother at age of 68 from chronic obstructive pulmonary disease and rheumatoid arthritis.) Additional Family Medical History / Comment(s): emphysema, cervical fusions Sister(s) Family Medical History: Cancer, Deep Vein Thrombosis (DVT) (patient has 3 sisters all are living one with DVT the other one with breast cancer.) Additional Family Medical History / Comment(s): ONE SISTER HX OF DVT, ONE SISTER BREAST CA Medications and Allergies Home Medications Medication Instructions Recorded Confirmed Type Ascorbic Acid [Vitamin C] 1,000 mg PO DAILY 03/14/15 02/02/18 History Carisoprodol [Soma] 350 mg PO TID 03/14/15 02/02/18 History Carvedilol [Coreg] 25 mg PO BID 03/14/15 02/02/18 History Cholecalciferol [Vitamin D3] 5,000 unit PO DAILY 03/14/15 02/02/18 History Cyanocobalamin [Vitamin B-12] 1,000 mcg PO DAILY 03/14/15 02/02/18 History Gabapentin [Neurontin] 100 mg PO TID 03/14/15 02/02/18 History Levothyroxine Sodium [Synthroid] 175 mcg PO DAILY 03/14/15 02/02/18 History Lovastatin [Mevacor] 40 mg PO HS 03/14/15 02/02/18 History Multivitamins, Thera [Theragran] 1 tab PO DAILY 03/14/15 02/02/18 History [place]-3 Fatty Acids [[place]-3] 1,000 mg PO BID 03/14/15 02/02/18 History Omeprazole 40 mg PO DAILY 03/14/15 02/02/18 History Sertraline [Zoloft] 100 mg PO HS 03/14/15 02/02/18 History Zolpidem [Ambien] 10 mg PO HS PRN 03/14/15 02/02/18 History fentaNYL 75MCG/HR PATCH [Duragesic 75 mcg TRANSDERM Q72H 03/14/15 02/02/18 History 75Mcg/Hr Patch] oxyCODONE HCL/ACETAMINOPHEN 1 tab PO Q6HR PRN 03/14/15 02/02/18 History [Percocet 10-325 mg] rOPINIRole HCL [Requip] 2 mg PO TID 03/14/15 02/02/18 History Calcium Carbonate 1,500 mg PO DAILY 02/02/18 02/02/18 History Magnesium Oxide [Hanson] 1,000 mg PO DAILY 02/02/18 02/02/18 History Allergies Allergy/AdvReac Type Severity Reaction Status Date / Time citalopram hydrobromide Allergy Itching Verified 02/02/18 15:14 [From Celexa] diazepam [From Valium] Allergy CHANGE IN Verified 02/02/18 15:14 MENTATION HEAVY METALS Allergy Unknown Uncoded 05/18/15 09:12 Surgical - Exam Vital Signs Temp Pulse Resp BP Pulse Ox 98.6 F 55 L 18 167/83 92 L 02/02/18 14:15 02/02/18 14:15 02/02/18 14:15 02/02/18 14:15 02/02/18 14:15 Physical exam: General: Well-developed, well-nourished HEENT: Normocephalic, sclerae nonicteric Abdomen: Mild to moderate diffuse tenderness, no rebound or guarding, mild distention, previous scars noted Extremities: No edema Neuro: Alert and oriented Results - Labs 02/03/18 08:18 02/03/18 08:18 Abnormal Lab Results - Last 24 Hours (Table) 02/02/18 02/02/18 02/02/18 Range/Units 14:15 14:15 18:41 RBC (3.80-5.40) m/uL Lymphocytes # 0.4 L (1.0-4.8) k/uL Lymphocytes # (Manual) (1.0-4.8) k/uL Carbon Dioxide (22-30) mmol/L BUN 25 H (7-17) mg/dL Glucose 103 H (74-99) mg/dL Total Protein (6.3-8.2) g/dL Albumin (3.5-5.0) g/dL Ur Specific [place] 1.038 H (1.001-1.035) Urine Protein Trace H (Negative) Urine Ketones 1+ H (Negative) 02/03/18 02/03/18 Range/Units 08:18 08:18 RBC 3.74 L (3.80-5.40) m/uL Lymphocytes # (1.0-4.8) k/uL Lymphocytes # (Manual) 0.94 L (1.0-4.8) k/uL Carbon Dioxide 31 H (22-30) mmol/L BUN 24 H (7-17) mg/dL Glucose (74-99) mg/dL Total Protein 5.4 L (6.3-8.2) g/dL Albumin 3.1 L (3.5-5.0) g/dL Ur Specific [place] (1.001-1.035) Urine Protein (Negative) Urine Ketones (Negative) Diabetes panel 02/02/18 02/03/18 Range/Units 14:15 08:18 Sodium 145 143 (137-145) mmol/L Potassium 4.1 3.9 (3.5-5.1) mmol/L Chloride 103 102 (98-107) mmol/L Carbon Dioxide 28 31 H (22-30) mmol/L BUN 25 H 24 H (7-17) mg/dL Creatinine 0.90 0.85 (0.52-1.04) mg/dL Glucose 103 H 85 (74-99) mg/dL Calcium 9.6 8.5 (8.4-10.2) mg/dL AST 25 21 (14-36) U/L ALT 20 22 (9-52) U/L Alkaline Phosphatase 107 77 (38-126) U/L Total Protein 6.7 5.4 L (6.3-8.2) g/dL Albumin 4.1 3.1 L (3.5-5.0) g/dL Calcium panel 02/02/18 02/03/18 Range/Units 14:15 08:18 Calcium 9.6 8.5 (8.4-10.2) mg/dL Albumin 4.1 3.1 L (3.5-5.0) g/dL Pituitary panel 02/02/18 02/03/18 Range/Units 14:15 08:18 Sodium 145 143 (137-145) mmol/L Potassium 4.1 3.9 (3.5-5.1) mmol/L Chloride 103 102 (98-107) mmol/L Carbon Dioxide 28 31 H (22-30) mmol/L BUN 25 H 24 H (7-17) mg/dL Creatinine 0.90 0.85 (0.52-1.04) mg/dL Glucose 103 H 85 (74-99) mg/dL Calcium 9.6 8.5 (8.4-10.2) mg/dL Adrenal panel 02/02/18 02/03/18 Range/Units 14:15 08:18 Sodium 145 143 (137-145) mmol/L Potassium 4.1 3.9 (3.5-5.1) mmol/L Chloride 103 102 (98-107) mmol/L Carbon Dioxide 28 31 H (22-30) mmol/L BUN 25 H 24 H (7-17) mg/dL Creatinine 0.90 0.85 (0.52-1.04) mg/dL Glucose 103 H 85 (74-99) mg/dL Calcium 9.6 8.5 (8.4-10.2) mg/dL Total Bilirubin 0.7 0.8 (0.2-1.3) mg/dL AST 25 21 (14-36) U/L ALT 20 22 (9-52) U/L Alkaline Phosphatase 107 77 (38-126) U/L Total Protein 6.7 5.4 L (6.3-8.2) g/dL Albumin 4.1 3.1 L (3.5-5.0) g/dL Assessment and Plan (1) Small bowel obstruction Narrative/Plan: Patient was small bowel junction. Likely related to intra-abdominal adhesions. We'll repeat abdominal x-rays tomorrow. Repeat labs tomorrow. If patient's tenderness does not improve or the patient develops leukocytosis or persistent obstruction would proceed with laparotomy. 7 Current Visit: Yes Status: Acute Code(s): K56.69 - OTHER INTESTINAL OBSTRUCTION * DO NOT USE * SNOMED Code(s): 771603561
--- NOTE | 2018-02-03 20:02 | P.PN ---
Subjective Progress Note Date: 02/03/18 This is a 72-year-old female one of Dr. Low with a previous medical history significant for osteoarthritis with multiple joint replacement and multiple orthopedic surgeries in the past along with chronic low back pain and back surgery as well as chronic pain syndrome with hypertension and hypertensive cardio vascular disease, restless leg syndrome, hypothyroidism, recurrent small bowel obstruction, heavy metal toxicity, broken heart syndrome, patient was in her usual state of health about yesterday when she had a few [place] and cranberry scones along with almond, woke up today the morning complaining of increase in bowel pain associated with increased nausea with significant heartburn and she had vomited once and she ended up coming to the emergency room because she has had multiple bowel obstruction and she goes the symptoms patient ended up coming to the ER had x-ray of the abdomen that showed small bowel obstruction this was followed by a computed tomography scan of the abdomen and pelvis that showed a distal small bowel obstruction with transition cannot be delineated at this point in time, NG tube was placed and the patient was admitted to the hospital Gen. surgeon consultation was obtained. 02/03: Patient remains nothing by mouth. Dr. Milton is on consult. He plans for repeat abdominal x-rays tomorrow and if her abdominal tenderness does not improve or the patient develops leukocytosis or persistent obstruction he would proceed with laparotomy. WBC 4.1, patient has been afebrile. VS stable. Objective - Vital Signs Vital signs: Vital Signs Temp 97.7 F 02/03/18 07:40 Pulse 67 02/03/18 07:40 Resp 18 02/03/18 07:40 BP 107/55 02/03/18 07:40 Pulse Ox 97 02/03/18 07:40 Intake & Output 02/02/18 02/03/18 02/03/18 18:59 06:59 18:59 Intake Total 1100 Balance 1100 Weight 79.379 kg Intake: Amount of Fluid Infused ( 1100 ml) Other: Voiding Method Toilet - Exam General appearance: average body habitus, mild distress - EENT Eyes: anicteric sclerae, EOMI, PERRLA, no ptosis, no scleral icterus, normal appearance ENT: hearing grossly normal, NA/AT, normal oropharynx, no thrush - Neck Neck: no lymphadenopathy, normal ROM, no rigidity, no stridor, no thyromegaly Carotids: bilateral: upstroke normal Thyroid: bilateral: normal size - Respiratory Respiratory: bilateral: diminished, negative: dullness, rales, rhonchi, wheezing , prolonged expiration, prolonged inspiration - Cardiovascular Rhythm: regular Heart sounds: normal: S1, S2 Abnormal Heart Sounds: systolic murmur, no S3 Gallop - Gastrointestinal General gastrointestinal: distended, hyperactive bowel sounds, tenderness, no umbilical hernia, no ventral hernia - Integumentary Integumentary: normal, normal turgor - Neurologic Neurologic: CNII-XII intact - Musculoskeletal Musculoskeletal: strength equal bilaterally - Psychiatric Psychiatric: A&O x's 3, appropriate affect, intact judgment & insight - Labs CBC & Chem 7: 02/03/18 08:18 02/03/18 08:18 Labs: Abnormal Lab Results - Last 24 Hours (Table) 02/02/18 02/02/18 02/02/18 Range/Units 14:15 14:15 18:41 RBC (3.80-5.40) m/uL Lymphocytes # 0.4 L (1.0-4.8) k/uL Lymphocytes # (Manual) (1.0-4.8) k/uL Carbon Dioxide (22-30) mmol/L BUN 25 H (7-17) mg/dL Glucose 103 H (74-99) mg/dL Total Protein (6.3-8.2) g/dL Albumin (3.5-5.0) g/dL Ur Specific [place] 1.038 H (1.001-1.035) Urine Protein Trace H (Negative) Urine Ketones 1+ H (Negative) 02/03/18 02/03/18 Range/Units 08:18 08:18 RBC 3.74 L (3.80-5.40) m/uL Lymphocytes # (1.0-4.8) k/uL Lymphocytes # (Manual) 0.94 L (1.0-4.8) k/uL Carbon Dioxide 31 H (22-30) mmol/L BUN 24 H (7-17) mg/dL Glucose (74-99) mg/dL Total Protein 5.4 L (6.3-8.2) g/dL Albumin 3.1 L (3.5-5.0) g/dL Ur Specific [place] (1.001-1.035) Urine Protein (Negative) Urine Ketones (Negative) Assessment and Plan Plan: 1. Small bowel obstruction. NG tube in place, started the patient on IV fluid resuscitation the form of D5 half-normal saline with 20 KCl at 125 mL an hour, continue pain management with morphine 2 mg IV push every 4 hours as needed, continue patient on Zofran 4 mg push every 4 hours as needed, consult with Dr Karine simeon. Repeat abdominal x-rays in the morning. 2. Hypertension and hypertensive cardiovascular disease. Hold off Coreg for now monitor the patient blood pressure very closely. We may start the patient on Vasotec 1.25 mg IV push every every 6 hours as needed for systolic greater than 160. 3. Hypothyroidism. Switch the patient to Synthroid 75 g IV push every 24 hours. 4. Hyperlipidemia. Hold off lovastatin. 5. Chronic pain syndrome. Continue fentanyl patch 75 g every 72 hours, continue with morphine 2 mg IV push every 4 hours as needed. 6. 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 Stable at this time. 7. Pulmonary hypertension with a prior history of broken heart syndrome stable at this time. 8. Severe GERD. Continue patient on Protonix 40 mg IV push every 24 hours. 9. DVT prophylaxis. Lovenox 40 mg subcutaneously every 24 hours. 10. GI prophylaxis. Continue patient on Protonix 40 mg IV push every 24 hours. 11. Patient is full code Discharge plan: Return home Impression and plan of care have been directed as dictated by the signing physician. Jill Baron nurse practitioner acting as scribe for signing physician.
[2018-02-04] MEDS: MORPHINE SULFATE 4 MG/ML SYRINGE IVP PRN ×4 (03:11→23:08)
[2018-02-04] MEDS: LORazepam 2 MG/ML INJ IV PRN ×3 (06:17→18:29)
[2018-02-04] MEDS: ENOXAPARIN 40 MG/0.4 ML SYRINGE SQ SCH (08:15)
[2018-02-04] MEDS: PANTOPRAZOLE 40 MG/10 ML VIAL IV SCH ×2 (08:15→21:05)
--- NOTE | 2018-02-04 08:17 | P.PN ---
Subjective Progress Note Date: 02/04/18 Principal diagnosis: Small bowel obstruction Patient feels much better today. Pain is mild at this time. She did have multiple loose stools that she says were either dark green or black. Today's x- ray appear improved although the report is pending. Today's labs are pending. She is afebrile without tachycardia. Objective - Vital Signs Vital signs: Vital Signs Temp 97.5 F L 02/04/18 07:47 Pulse 59 L 02/04/18 07:47 Resp 16 02/04/18 07:47 BP 154/70 02/04/18 07:47 Pulse Ox 94 L 02/04/18 07:47 Intake & Output 02/03/18 02/04/18 02/04/18 18:59 06:59 18:59 Intake Total 600 1375 Balance 600 1375 Weight 79.379 kg Intake: Intake, IV Titration 600 1375 Amount Sodium Chloride 0.9% 1, 600 1375 000 ml @ 125 mls/hr IV . Q8H [facility] Rx#:[id number] Oral 0 Other: Voiding Method Toilet Toilet # Voids 5 2 1 # Bowel Movements 1 - Exam Abdomen: Soft, mild diffuse tenderness much improved from yesterday. Nondistended - Labs CBC & Chem 7: 02/03/18 08:18 02/03/18 08:18 Labs: Abnormal Lab Results - Last 24 Hours (Table) 02/03/18 02/03/18 Range/Units 08:18 08:18 RBC 3.74 L (3.80-5.40) m/uL Lymphocytes # (Manual) 0.94 L (1.0-4.8) k/uL Carbon Dioxide 31 H (22-30) mmol/L BUN 24 H (7-17) mg/dL Total Protein 5.4 L (6.3-8.2) g/dL Albumin 3.1 L (3.5-5.0) g/dL Assessment and Plan (1) Small bowel obstruction Narrative/Plan: Keep nasogastric tube to low intermittent suction. Check morning labs. Check flat plate dictation. Current Visit: Yes Status: Acute Code(s): K56.69 - OTHER INTESTINAL OBSTRUCTION * DO NOT USE * SNOMED Code(s): 083610685
--- NOTE | 2018-02-04 08:17 | XR ---
EXAMINATION TYPE: XR abdomen complete w decub DATE OF EXAM: 02/04/2018 COMPARISON: 02/02/2018 HISTORY: Follow-up obstruction TECHNIQUE: Supine, upright, and left side down lateral decubitus views of the abdomen are obtained. FINDINGS: Postsurgical changes are noted. Stimulator device seen. Postsurgical change involving the v ertebral, and hips. Bowel gas pattern is nonspecific. Main a few prominent small bowel loops within the midabdomen. Subse gmental consolidation at the left lung base. Degenerative change and scoliotic curvature of the spine . IMPRESSION: 1. Nonspecific abdomen. The remaining a few prominent small bowel loops in the mid abdomen. Partial o bstruction remains in the differential diagnosis. 2. Left basilar atelectasis favored over infiltrate.
[2018-02-04] MEDS: SODIUM CHLORIDE 0.9% 1,000 ML IV SCH ×2 (08:22→17:55)
[2018-02-04 08:29] LABS: Basophils % (A) 0 %; Eosinophils # (A) 0.1 k/uL (0-0.7); Eosinophils % (A) 4 %; HCT 32.9 % (34.0-46.0); HGB 10.5 gm/dL (11.4-16.0); Lymphocytes # (A) 0.7 k/uL (1.0-4.8); Lymphocytes % (A) 22 %; MCH 30.5 pg (25.0-35.0); MCHC 32.1 g/dL (31.0-37.0); MCV 95.1 fL (80.0-100.0); Mean Platelet Volume 7.7; Monocytes # (A) 0.4 k/uL (0-1.0); Monocytes % (A) 11 %; Neutrophils % (A) 59 %; Platelet Count 149 k/uL (150-450); RBC 3.45 m/uL (3.80-5.40); RDW 13.5 % (11.5-15.5); WBC 3.3 k/uL (3.8-10.6)
[2018-02-04 08:44] LABS: Anion Gap 14 mmol/L; Blood Urea Nitrogen 21 mg/dL (7-17); Calcium 8.1 mg/dL (8.4-10.2); Carbon Dioxide 21 mmol/L (22-30); Chloride 109 mmol/L (98-107); Glucose 61 mg/dL (74-99); Potassium 3.7 mmol/L (3.5-5.1); Sodium 144 mmol/L (137-145)
--- NOTE | 2018-02-04 13:03 | P.PN ---
Subjective Progress Note Date: 02/04/18 This is a 72-year-old female one of Dr. Low with a previous medical history significant for osteoarthritis with multiple joint replacement and multiple orthopedic surgeries in the past along with chronic low back pain and back surgery as well as chronic pain syndrome with hypertension and hypertensive cardio vascular disease, restless leg syndrome, hypothyroidism, recurrent small bowel obstruction, heavy metal toxicity, broken heart syndrome, patient was in her usual state of health about yesterday when she had a few [place] and cranberry scones along with almond, woke up today the morning complaining of increase in bowel pain associated with increased nausea with significant heartburn and she had vomited once and she ended up coming to the emergency room because she has had multiple bowel obstruction and she goes the symptoms patient ended up coming to the ER had x-ray of the abdomen that showed small bowel obstruction this was followed by a computed tomography scan of the abdomen and pelvis that showed a distal small bowel obstruction with transition cannot be delineated at this point in time, NG tube was placed and the patient was admitted to the hospital Gen. surgeon consultation was obtained. 02/03: Patient remains nothing by mouth. Dr. Milton is on consult. He plans for repeat abdominal x-rays tomorrow and if her abdominal tenderness does not improve or the patient develops leukocytosis or persistent obstruction he would proceed with laparotomy. WBC 4.1, patient has been afebrile. VS stable. 02/04: Patient is having multiple loose stools. Her abdominal pain is improved today. She has been afebrile. Repeat abdominal x-ray that revealed nonspecific abdomen. The remaining a few prominent small bowel loops in the mid abdomen. Partial obstruction remains in the differential. Left basilar atelectasis favored over infiltrate. Dr. Milton is planning for continued conservative management. Incentive spirometry will be added. patient's NG tube came out when she was sneezing and it has been ordered to be replaced by Dr. Milton. Objective - Vital Signs Vital signs: Vital Signs Temp 97.5 F L 02/04/18 07:47 Pulse 59 L 02/04/18 07:47 Resp 16 02/04/18 07:47 BP 154/70 02/04/18 07:47 Pulse Ox 94 L 02/04/18 07:47 Intake & Output 02/03/18 02/04/18 02/04/18 18:59 06:59 18:59 Intake Total 600 1375 Balance 600 1375 Weight 79.379 kg Intake: Intake, IV Titration 600 1375 Amount Sodium Chloride 0.9% 1, 600 1375 000 ml @ 125 mls/hr IV . Q8H [facility] Rx#:[id number] Oral 0 Other: Voiding Method Toilet Toilet # Voids 5 2 1 # Bowel Movements 1 - Exam General appearance: average body habitus, mild distress - EENT Eyes: anicteric sclerae, EOMI, PERRLA, no ptosis, no scleral icterus, normal appearance ENT: hearing grossly normal, NA/AT, normal oropharynx, no thrush - Neck Neck: no lymphadenopathy, normal ROM, no rigidity, no stridor, no thyromegaly Carotids: bilateral: upstroke normal Thyroid: bilateral: normal size - Respiratory Respiratory: bilateral: diminished, negative: dullness, rales, rhonchi, wheezing , prolonged expiration, prolonged inspiration - Cardiovascular Rhythm: regular Heart sounds: normal: S1, S2 Abnormal Heart Sounds: systolic murmur, no S3 Gallop - Gastrointestinal General gastrointestinal: distended, hyperactive bowel sounds, tenderness, no umbilical hernia, no ventral hernia - Integumentary Integumentary: normal, normal turgor - Neurologic Neurologic: CNII-XII intact - Musculoskeletal Musculoskeletal: strength equal bilaterally - Psychiatric Psychiatric: A&O x's 3, appropriate affect, intact judgment & insight - Labs CBC & Chem 7: 02/04/18 08:08 02/04/18 08:08 Labs: Abnormal Lab Results - Last 24 Hours (Table) 02/03/18 02/04/18 02/04/18 Range/Units 08:18 08:08 08:08 WBC 3.3 L (3.8-10.6) k/uL RBC 3.45 L (3.80-5.40) m/uL Hgb 10.5 L (11.4-16.0) gm/dL Hct 32.9 L (34.0-46.0) % Plt Count 149 L (150-450) k/uL Lymphocytes # 0.7 L (1.0-4.8) k/uL Lymphocytes # (Manual) 0.94 L (1.0-4.8) k/uL Chloride 109 H (98-107) mmol/L Carbon Dioxide 21 L (22-30) mmol/L BUN 21 H (7-17) mg/dL Glucose 61 L (74-99) mg/dL Calcium 8.1 L (8.4-10.2) mg/dL Assessment and Plan Plan: 1. Small bowel obstruction. NG tube in place, D5 half-normal saline with 20 KCl at 125 mL an hour, continue pain management with morphine 2 mg IV push every 4 hours as needed, continue patient on Zofran 4 mg push every 4 hours as needed, consult with Dr Karine simeon. Repeat abdominal x-rays as above. Continue conservative management. 2. Hypertension and hypertensive cardiovascular disease. Hold off Coreg for now monitor the patient blood pressure very closely. We may start the patient on Vasotec 1.25 mg IV push every every 6 hours as needed for systolic greater than 160. 3. Hypothyroidism. Switch the patient to Synthroid 75 g IV push every 24 hours. 4. Hyperlipidemia. Hold off lovastatin. 5. Chronic pain syndrome. Continue fentanyl patch 75 g every 72 hours, continue with morphine 2 mg IV push every 4 hours as needed. 6. 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 Stable at this time. 7. Pulmonary hypertension with a prior history of broken heart syndrome stable at this time. 8. Severe GERD. Continue patient on Protonix 40 mg IV push every 24 hours. 9. DVT prophylaxis. Lovenox 40 mg subcutaneously every 24 hours. 10. GI prophylaxis. Continue patient on Protonix 40 mg IV push every 24 hours. 11. Patient is full code Discharge plan: Return home Impression and plan of care have been directed as dictated by the signing physician. Jill Baron nurse practitioner acting as scribe for signing physician.
[2018-02-05] MEDS: SODIUM CHLORIDE 0.9% 1,000 ML IV SCH ×2 (02:43→07:46)
[2018-02-05] MEDS: LORazepam 2 MG/ML INJ IV PRN ×3 (02:44→20:40)
[2018-02-05] MEDS: ENOXAPARIN 40 MG/0.4 ML SYRINGE SQ SCH (07:46)
[2018-02-05] MEDS: PANTOPRAZOLE 40 MG/10 ML VIAL IV SCH ×2 (07:46→20:40)
[2018-02-05 08:34] LABS: HCT 33.6 % (34.0-46.0); HGB 10.9 gm/dL (11.4-16.0); MCH 30.3 pg (25.0-35.0); MCHC 32.3 g/dL (31.0-37.0); Platelet Count 172 k/uL (150-450); RBC 3.58 m/uL (3.80-5.40); RDW 13.5 % (11.5-15.5); WBC 5.7 k/uL (3.8-10.6)
[2018-02-05 09:56] LABS: Anion Gap 18 mmol/L; Blood Urea Nitrogen 14 mg/dL (7-17); Calcium 8.5 mg/dL (8.4-10.2); Carbon Dioxide 17 mmol/L (22-30); Chloride 109 mmol/L (98-107); Potassium 3.7 mmol/L (3.5-5.1); Sodium 144 mmol/L (137-145)
[2018-02-05 10:03] LABS: Glucose 44 mg/dL (74-99)
[2018-02-05] MEDS ORDERED: DEXTROSE 50%-WATER 50 ML SYRINGE IVP ONE (10:20)
[2018-02-05] MEDS ORDERED: DEXTROSE 5%-0.9% NACL 1,000 ML IV SCH (10:30)
[2018-02-05 10:36] LABS: Glucose,Whole Blood 56 mg/dL (75-99)
[2018-02-05 10:43] LABS: Glucose,Whole Blood 120 mg/dL (75-99)
--- NOTE | 2018-02-05 11:33 | P.PN ---
<Laurie Valiente - Last Filed: 02/05/18 11:23> Subjective Progress Note Date: 02/05/18 72-year-old female seen at the bedside nasal gastric tube in place connected to suction 200 out for the last 8 hours states is passing gas no stool this morning currently is denying abdominal discomfort when questioning states is anxious to have the nasogastric tube removed this morning labs reviewed noted low blood sugars otherwise unremarkable conservative management for small bowel obstruction Objective - Vital Signs Vital signs: Vital Signs Temp 97.6 F 02/05/18 08:50 Pulse 61 02/05/18 08:50 Resp 16 02/05/18 08:50 BP 141/72 02/05/18 08:50 Pulse Ox 94 L 02/05/18 08:50 Intake & Output 02/04/18 02/05/18 02/05/18 18:59 06:59 18:59 Intake Total 750 Output Total 300 Balance 450 Intake: Intake, IV Titration 750 Amount Sodium Chloride 0.9% 1, 750 000 ml @ 125 mls/hr IV . Q8H [facility] Rx#:[id number] Oral 0 Output: Gastric Drainage 300 Other: Voiding Method Toilet Toilet Toilet # Voids 3 1 # Bowel Movements 1 - Exam Physical exam Pleasant 72-year-old female alert oriented 3 resting in bed chief complaint "bothersome having the tube in place" Lungs bilaterally good air movement on room air no shortness of breath no cough Heart S1-S2 audible and regular Abdomen soft mild diffuse tenderness not distended few hypoactive bowel tones states urinating no difficulty passing gas rectally no stool nasal gastric tube in place 200 mL for the past 8 hours Extremities no edema noted - Labs CBC & Chem 7: 02/05/18 07:58 02/05/18 07:58 Labs: Abnormal Lab Results - Last 24 Hours (Table) 02/05/18 02/05/18 02/05/18 Range/Units 07:58 07:58 10:16 RBC 3.58 L (3.80-5.40) m/uL Hgb 10.9 L (11.4-16.0) gm/dL Hct 33.6 L (34.0-46.0) % Chloride 109 H (98-107) mmol/L Carbon Dioxide 17 L (22-30) mmol/L Glucose 44 L* (74-99) mg/dL POC Glucose (mg/dL) 56 L (75-99) mg/dL 02/05/18 Range/Units 10:40 RBC (3.80-5.40) m/uL Hgb (11.4-16.0) gm/dL Hct (34.0-46.0) % Chloride (98-107) mmol/L Carbon Dioxide (22-30) mmol/L Glucose (74-99) mg/dL POC Glucose (mg/dL) 120 H (75-99) mg/dL Assessment and Plan Assessment: Impression Present on admission abdominal pain with vomiting suspect due to Small bowel obstruction History of prior small bowel obstructions CAT scan abdomen pelvis show evidence of a small bowel obstruction Plan IV fluid for hydration Continue the nasal gastric tube to suction Continue conservative management for treatment of the small bowel obstruction Will follow with you The above impression and plan of care have been discussed and directed by signing physician. Laurie Valiente nurse practitioner acting as scribe for signing physician. <Sav Milton - Last Filed: 02/05/18 16:59> Objective - Vital Signs Vital signs: Vital Signs Temp 97.3 F L 02/05/18 15:14 Pulse 62 02/05/18 15:14 Resp 16 02/05/18 15:14 BP 187/85 02/05/18 15:14 Pulse Ox 96 02/05/18 15:14 Intake & Output 02/04/18 02/05/18 02/05/18 18:59 06:59 18:59 Intake Total 750 Output Total 300 Balance 450 Intake: Intake, IV Titration 750 Amount Sodium Chloride 0.9% 1, 750 000 ml @ 125 mls/hr IV . Q8H [facility] Rx#:[id number] Oral 0 Output: Gastric Drainage 300 Other: Voiding Method Toilet Toilet Toilet # Voids 3 1 # Bowel Movements 1 - Labs CBC & Chem 7: 02/05/18 07:58 02/05/18 07:58 Labs: Abnormal Lab Results - Last 24 Hours (Table) 02/05/18 02/05/18 02/05/18 Range/Units 07:58 07:58 10:16 RBC 3.58 L (3.80-5.40) m/uL Hgb 10.9 L (11.4-16.0) gm/dL Hct 33.6 L (34.0-46.0) % Chloride 109 H (98-107) mmol/L Carbon Dioxide 17 L (22-30) mmol/L Glucose 44 L* (74-99) mg/dL POC Glucose (mg/dL) 56 L (75-99) mg/dL 02/05/18 Range/Units 10:40 RBC (3.80-5.40) m/uL Hgb (11.4-16.0) gm/dL Hct (34.0-46.0) % Chloride (98-107) mmol/L Carbon Dioxide (22-30) mmol/L Glucose (74-99) mg/dL POC Glucose (mg/dL) 120 H (75-99) mg/dL Assessment and Plan Assessment: As above. Patient's bowel obstruction appears clinically improved. She is having liquid stools today. Denies abdominal pain currently. Nasogastric tube output is decreased. We'll remove nasogastric tube. Begin clear liquids. (1) Small bowel obstruction Current Visit: Yes Status: Acute Code(s): K56.69 - OTHER INTESTINAL OBSTRUCTION * DO NOT USE * SNOMED Code(s): 288507389
[2018-02-05] MEDS: MORPHINE SULFATE 4 MG/ML SYRINGE IVP PRN (13:34)
--- NOTE | 2018-02-05 14:25 | P.PN ---
Subjective Progress Note Date: 02/05/18 This is a 72-year-old female one of Dr. Low with a previous medical history significant for osteoarthritis with multiple joint replacement and multiple orthopedic surgeries in the past along with chronic low back pain and back surgery as well as chronic pain syndrome with hypertension and hypertensive cardio vascular disease, restless leg syndrome, hypothyroidism, recurrent small bowel obstruction, heavy metal toxicity, broken heart syndrome, patient was in her usual state of health about yesterday when she had a few [place] and cranberry scones along with almond, woke up today the morning complaining of increase in bowel pain associated with increased nausea with significant heartburn and she had vomited once and she ended up coming to the emergency room because she has had multiple bowel obstruction and she goes the symptoms patient ended up coming to the ER had x-ray of the abdomen that showed small bowel obstruction this was followed by a computed tomography scan of the abdomen and pelvis that showed a distal small bowel obstruction with transition cannot be delineated at this point in time, NG tube was placed and the patient was admitted to the hospital Gen. surgeon consultation was obtained. 02/03: Patient remains nothing by mouth. Dr. Milton is on consult. He plans for repeat abdominal x-rays tomorrow and if her abdominal tenderness does not improve or the patient develops leukocytosis or persistent obstruction he would proceed with laparotomy. WBC 4.1, patient has been afebrile. VS stable. 02/04: Patient is having multiple loose stools. Her abdominal pain is improved today. She has been afebrile. Repeat abdominal x-ray that revealed nonspecific abdomen. The remaining a few prominent small bowel loops in the mid abdomen. Partial obstruction remains in the differential. Left basilar atelectasis favored over infiltrate. Dr. Milton is planning for continued conservative management. Incentive spirometry will be added. patient's NG tube came out when she was sneezing and it has been ordered to be replaced by Dr. Milton. 02/05: Patient remains with NG tube in place. She states she has some improvement of her abdominal pain. She is anxious to have the NG tube removed. Patient had bout of hypoglycemia today with a blood sugar of 44. IV fluids changed over to D5 0.9 normal saline. White count is normal at 5.7. Objective - Vital Signs Vital signs: Vital Signs Temp 97.6 F 02/05/18 08:50 Pulse 61 02/05/18 08:50 Resp 16 02/05/18 08:50 BP 141/72 02/05/18 08:50 Pulse Ox 94 L 02/05/18 08:50 Intake & Output 02/04/18 02/05/18 02/05/18 18:59 06:59 18:59 Intake Total 750 Output Total 300 Balance 450 Intake: Intake, IV Titration 750 Amount Sodium Chloride 0.9% 1, 750 000 ml @ 125 mls/hr IV . Q8H [facility] Rx#:[id number] Oral 0 Output: Gastric Drainage 300 Other: Voiding Method Toilet Toilet Toilet # Voids 3 1 # Bowel Movements 1 - Exam General appearance: average body habitus, mild distress - EENT Eyes: anicteric sclerae, EOMI, PERRLA, no ptosis, no scleral icterus, normal appearance ENT: hearing grossly normal, NA/AT, normal oropharynx, no thrush - Neck Neck: no lymphadenopathy, normal ROM, no rigidity, no stridor, no thyromegaly Carotids: bilateral: upstroke normal Thyroid: bilateral: normal size - Respiratory Respiratory: bilateral: diminished, negative: dullness, rales, rhonchi, wheezing , prolonged expiration, prolonged inspiration - Cardiovascular Rhythm: regular Heart sounds: normal: S1, S2 Abnormal Heart Sounds: systolic murmur, no S3 Gallop - Gastrointestinal General gastrointestinal: distended, hyperactive bowel sounds, tenderness, no umbilical hernia, no ventral hernia - Integumentary Integumentary: normal, normal turgor - Neurologic Neurologic: CNII-XII intact - Musculoskeletal Musculoskeletal: strength equal bilaterally - Psychiatric Psychiatric: A&O x's 3, appropriate affect, intact judgment & insight - Labs CBC & Chem 7: 02/05/18 07:58 02/05/18 07:58 Labs: Abnormal Lab Results - Last 24 Hours (Table) 02/05/18 Range/Units 07:58 RBC 3.58 L (3.80-5.40) m/uL Hgb 10.9 L (11.4-16.0) gm/dL Hct 33.6 L (34.0-46.0) % Assessment and Plan Plan: 1. Small bowel obstruction. NG tube in place, D5 half-normal saline with 20 KCl at 125 mL an hour, continue pain management with morphine 2 mg IV push every 4 hours as needed, continue patient on Zofran 4 mg push every 4 hours as needed, consult with Dr Karine simeon. Repeat abdominal x-rays as above. Continue conservative management. 2. Hypertension and hypertensive cardiovascular disease. Hold off Coreg for now monitor the patient blood pressure very closely. We may start the patient on Vasotec 1.25 mg IV push every every 6 hours as needed for systolic greater than 160. 3. Hypothyroidism. Switch the patient to Synthroid 75 g IV push every 24 hours. 4. Hyperlipidemia. Hold off lovastatin. 5. Chronic pain syndrome. Continue fentanyl patch 75 g every 72 hours, continue with morphine 2 mg IV push every 4 hours as needed. 6. 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 Stable at this time. 7. Pulmonary hypertension with a prior history of broken heart syndrome stable at this time. 8. Severe GERD. Continue patient on Protonix 40 mg IV push every 24 hours. 9. DVT prophylaxis. Lovenox 40 mg subcutaneously every 24 hours. 10. GI prophylaxis. Continue patient on Protonix 40 mg IV push every 24 hours. 11. Episode of hypoglycemia. IV fluids changed to D5 half-normal saline with KCl 125 mL per hour. Patient is full code Discharge plan: Return home Impression and plan of care have been directed as dictated by the signing physician. Jill Baron nurse practitioner acting as scribe for signing physician.
[2018-02-05] MEDS ORDERED: ZOLPIDEM 10 MG TAB PO PRN (15:10)
[2018-02-05] MEDS ORDERED: oxyCODONE-APAP 10-325MG 1 EACH TAB PO PRN (15:10)
[2018-02-05] MEDS ORDERED: D5-0.45% NACL WITH KCL 20MEQ/L 1,000 ML IV SCH (15:30)
[2018-02-05] MEDS: CARVEDILOL 12.5 MG TAB PO SCH (16:56)
[2018-02-05] MEDS: GABAPENTIN 100 MG CAP PO SCH ×2 (16:56→20:39)
[2018-02-05] MEDS ORDERED: FUROSEMIDE 10 MG/ML 2 ML VIAL IV ONE (19:19)
[2018-02-05] MEDS ORDERED: SERTRALINE 100 MG TAB PO SCH (21:00)
[2018-02-06] MEDS ORDERED: LEVOTHYROXINE 100 MCG TAB PO SCH (06:30)
[2018-02-06] MEDS ORDERED: LEVOTHYROXINE 75 MCG TAB PO SCH (06:30)
[2018-02-06 08:22] VITALS: BP 171/81; PULSE 60; RESP 16; TEMP 98.2
[2018-02-06] MEDS: GABAPENTIN 100 MG CAP PO SCH (08:23)
[2018-02-06] MEDS: CARVEDILOL 12.5 MG TAB PO SCH (08:23)
[2018-02-06] MEDS: PANTOPRAZOLE 40 MG/10 ML VIAL IV SCH (08:23)
[2018-02-06] MEDS: ENOXAPARIN 40 MG/0.4 ML SYRINGE SQ SCH (08:23)
[2018-02-06] MEDS ORDERED: MORPHINE ORAL SOLN 10 MG/5 ML CUP PO PRN (09:06)
--- NOTE | 2018-02-06 13:03 | P.PN ---
Subjective Progress Note Date: 02/06/18 Principal diagnosis: Small bowel obstruction Patient doing well today. Denies abdominal pain. Tolerating clear liquids. Hungry for more. She would like to try to go home today. Objective - Vital Signs Vital signs: Vital Signs Temp 98.2 F 02/06/18 07:53 Pulse 60 02/06/18 07:53 Resp 16 02/06/18 07:53 BP 171/81 02/06/18 07:53 Pulse Ox 93 L 02/06/18 07:53 Intake & Output 02/05/18 02/06/18 02/06/18 18:59 06:59 18:59 Other: Voiding Method Toilet Toilet Toilet # Voids 2 2 - Exam Abdomen: Soft, nontender, nondistended - Labs CBC & Chem 7: 02/05/18 07:58 02/05/18 07:58 Assessment and Plan (1) Small bowel obstruction Narrative/Plan: Will increase diet. Possible discharge later today or tomorrow. Follow-up if symptoms recur. Current Visit: Yes Status: Acute Code(s): K56.69 - OTHER INTESTINAL OBSTRUCTION * DO NOT USE * SNOMED Code(s): 105749605
--- NOTE | 2018-02-06 14:06 | P.DS ---
Providers Date of admission: 02/02/18 16:17 Expected date of discharge: 02/06/18 Attending physician: Benton Huggins Consults: 02/02/18 16:18 Consult Physician Routine Consulting Provider: Sav Milton Consult Reason/Comments: Abdominal pain, possible small bowel obstruction Do you want consulting provider notified?: Yes Primary care physician: [place] Course: This is a 72-year-old female one of Dr. Low with a previous medical history significant for osteoarthritis with multiple joint replacement and multiple orthopedic surgeries in the past along with chronic low back pain and back surgery as well as chronic pain syndrome with hypertension and hypertensive cardio vascular disease, restless leg syndrome, hypothyroidism, recurrent small bowel obstruction, heavy metal toxicity, broken heart syndrome, patient was in her usual state of health about yesterday when she had a few [place] and cranberry scones along with almond, woke up today the morning complaining of increase in bowel pain associated with increased nausea with significant heartburn and she had vomited once and she ended up coming to the emergency room because she has had multiple bowel obstruction and she goes the symptoms patient ended up coming to the ER had x-ray of the abdomen that showed small bowel obstruction this was followed by a computed tomography scan of the abdomen and pelvis that showed a distal small bowel obstruction with transition cannot be delineated at this point in time, NG tube was placed and the patient was admitted to the hospital Gen. surgeon consultation was obtained. 02/03: Patient remains nothing by mouth. Dr. Milton is on consult. He plans for repeat abdominal x-rays tomorrow and if her abdominal tenderness does not improve or the patient develops leukocytosis or persistent obstruction he would proceed with laparotomy. WBC 4.1, patient has been afebrile. VS stable. 5/2: Patient is having multiple loose stools. Her abdominal pain is improved today. She has been afebrile. Repeat abdominal x-ray that revealed nonspecific abdomen. The remaining a few prominent small bowel loops in the mid abdomen. Partial obstruction remains in the differential. Left basilar atelectasis favored over infiltrate. Dr. Milton is planning for continued conservative management. Incentive spirometry will be added. patient's NG tube came out when she was sneezing and it has been ordered to be replaced by Dr. Milton. 3: Patient remains with NG tube in place. She states she has some improvement of her abdominal pain. She is anxious to have the NG tube removed. Patient had bout of hypoglycemia today with a blood sugar of 44. IV fluids changed over to D5 0.9 normal saline. White count is normal at 5.7. 02/06: Yesterday, Dr. Milton has ordered for NG tube to be removed and start clear liquids which patient is tolerating. She has been afebrile, no tachycardia. Blood sugars are improved. Patient's diet will be advanced to soft and as long as she tolerates, she'll be discharged home later today. Patient has been cleared for discharge by Dr. Milton Discharge diagnoses: 1. Small bowel obstruction. 2. Hypertension and hypertensive cardiovascular disease. 3. Hypothyroidism. 4. Hyperlipidemia. 5. Chronic pain syndrome. 6. 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 Stable at this time. 7. Pulmonary hypertension with a prior history of broken heart syndrome stable at this time. 8. Severe GERD. 9. Episode of hypoglycemia. 10. Restless leg syndrome. Discharge plan: Return home Impression and plan of care have been directed as dictated by the signing physician. Jill Baron nurse practitioner acting as scribe for signing physician. Patient Condition at Discharge: Good Plan - Discharge Summary Discharge Rx Participant: No New Discharge Prescriptions: Continue Cyanocobalamin [Vitamin B-12] 1,000 mcg PO DAILY Sidney-3 Fatty Acids [Sidney-3] 1,000 mg PO BID Cholecalciferol [Vitamin D3] 5,000 unit PO DAILY Multivitamins, Thera [Multivitamin (formulary)] 1 tab PO DAILY Ascorbic Acid [Vitamin C] 1,000 mg PO DAILY oxyCODONE HCL/ACETAMINOPHEN [Percocet 10-325 mg] 1 tab PO Q6HR PRN PRN Reason: Pain fentaNYL 75MCG/HR PATCH [Duragesic 75MCG/HR] 75 mcg TRANSDERM Q72H Zolpidem [Ambien] 10 mg PO HS PRN PRN Reason: Insomnia Lovastatin [Mevacor] 40 mg PO HS Omeprazole 40 mg PO DAILY Levothyroxine Sodium [Synthroid] 175 mcg PO DAILY Carisoprodol [Soma] 350 mg PO TID rOPINIRole HCL [Requip] 2 mg PO TID Sertraline [Zoloft] 100 mg PO HS Gabapentin [Neurontin] 100 mg PO TID Carvedilol [Coreg] 25 mg PO BID Magnesium Oxide [Hanson] 1,000 mg PO DAILY Calcium Carbonate 1,500 mg PO DAILY Discharge Medication List Ascorbic Acid [Vitamin C] 1,000 mg PO DAILY 03/14/15 [History] Carisoprodol [Soma] 350 mg PO TID 03/14/15 [History] Carvedilol [Coreg] 25 mg PO BID 03/14/15 [History] Cholecalciferol [Vitamin D3] 5,000 unit PO DAILY 03/14/15 [History] Cyanocobalamin [Vitamin B-12] 1,000 mcg PO DAILY 03/14/15 [History] Gabapentin [Neurontin] 100 mg PO TID 03/14/15 [History] Levothyroxine Sodium [Synthroid] 175 mcg PO DAILY 03/14/15 [History] Lovastatin [Mevacor] 40 mg PO HS 03/14/15 [History] Multivitamins, Thera [Multivitamin (formulary)] 1 tab PO DAILY 03/14/15 [History ] Sidney-3 Fatty Acids [Sidney-3] 1,000 mg PO BID 03/14/15 [History] Omeprazole 40 mg PO DAILY 03/14/15 [History] Sertraline [Zoloft] 100 mg PO HS 03/14/15 [History] Zolpidem [Ambien] 10 mg PO HS PRN 03/14/15 [History] fentaNYL 75MCG/HR PATCH [Duragesic 75MCG/HR] 75 mcg TRANSDERM Q72H 03/14/15 [ History] oxyCODONE HCL/ACETAMINOPHEN [Percocet 10-325 mg] 1 tab PO Q6HR PRN 03/14/15 [ History] rOPINIRole HCL [Requip] 2 mg PO TID 03/14/15 [History] Calcium Carbonate 1,500 mg PO DAILY 02/02/18 [History] Magnesium Oxide [Hanson] 1,000 mg PO DAILY 02/02/18 [History] Follow up Appointment(s)/Referral(s): Geo Low MD [Primary Care Provider] - 02/12/18 11:00 am Patient Instructions/Handouts: Acute Abdominal Pain (DC), Bowel Obstruction (DC ) Discharge Disposition: HOME SELF-CARE
[2018-02-06] MEDS ORDERED: PANTOPRAZOLE 40 MG TABLET PO SCH (17:30)
== END 2018-02-06 14:50 | disposition home or self-care (01) | DRG 389 ==
LOC: EC 13:56 → 5MS5E 16:17
PROVIDERS: ADMIT Internal Medicine; ATTEND Internal Medicine
DX: K56.600 Partial intestinal obstruction, unspecified as to cause (principal); J98.11 Atelectasis; E16.2 Hypoglycemia, unspecified; E78.5 Hyperlipidemia, unspecified; E89.0 Postprocedural hypothyroidism; G25.81 Restless legs syndrome; G89.4 Chronic pain syndrome; I11.9 Hypertensive heart disease without heart failure; I27.20 Pulmonary hypertension, unspecified; J44.9 Chronic obstructive pulmonary disease, unspecified; K21.9 Gastro-esophageal reflux disease without esophagitis; M54.5 Low back pain; M19.90 Unspecified osteoarthritis, unspecified site; M41.9 Scoliosis, unspecified; E86.0 Dehydration; F41.9 Anxiety disorder, unspecified; F32.9 Major depressive disorder, single episode, unspecified; Z96.653 Presence of artificial knee joint, bilateral; Z96.643 Presence of artificial hip joint, bilateral; Z98.1 Arthrodesis status; Z87.891 Personal history of nicotine dependence; Z87.11 Personal history of peptic ulcer disease; Z79.890 Hormone replacement therapy; Z79.899 Other long term (current) drug therapy; Z88.8 Allergy status to other drugs, medicaments and biological substances; Z91.048 Other nonmedicinal substance allergy status; Z83.3 Family history of diabetes mellitus; Z82.61 Family history of arthritis; Z82.5 Family history of asthma and other chronic lower respiratory diseases; Z82.49 Family history of ischemic heart disease and other diseases of the circulatory system; Z80.3 Family history of malignant neoplasm of breast; Z83.2 Family history of diseases of the blood and blood-forming organs and certain disorders involving the immune mechanism
CPT/HCPCS: 36415; 43753; 74019; 74021; 74177; 80048; 80053; 81003; 82150; 82550; 82553; 83605; 83690; 83735; 84484; 85025; 85027; 85610; 85730; 96361; 96374; 96375; 96376; 99285

== ENCOUNTER → 2019-01-15 | Outpatient (CLI) | payer MEDICARE ==
--- NOTE | 2019-01-15 20:41 | CT ---
EXAMINATION TYPE: CT shoulder LT wo con DATE OF EXAM: 01/15/2019 COMPARISON: None HISTORY: left shoulder pain CT DLP: 253.2 mGycm Automated exposure control for dose reduction was used. FINDINGS: Severe arthropathy of the glenohumeral joint with hypertrophic spurring noted and remodeling of the g lenoid. Chronic labral tear suspected. Suspect complete loss of cartilage within the joint space. Benign cystic changes involving the head l ikely the basis of a geode. No acute fracture. No dislocation. High riding humeral head likely in the basis of chronic rotator cu ff disease. Arthropathy of the AC joints. IMPRESSION: 1 SEVERE ARTHROPATHY OF THE GLENOHUMERAL JOINT WITH COMPLETE LOSS OF JOINT SPACE AND PROBABLE LOSS OF CARTILAGE AND LABRAL TEARS. FINDINGS COMPATIBLE SEVERE ARTHRITIC CHANGE. 2. HIGH RIDING HUMERAL HEAD ASSOCIATED WITH CHRONIC ROTATOR CUFF DISEASE. CORRELATE CLINICALLY. THERE IS AC JOINT ARTHROPATHY. 3. THERE IS INCREASED SOFT TISSUE DENSITY IN THE SUBACROMIAL BURSA WITH AREAS OF SUSPECTED CALCIFICAT ION. MAY BE SECONDARY TO CHRONIC ROTATOR CUFF THICKENING AND CALCIFIC TENDINOSIS. OTHER ETIOLOGIES NO T EXCLUDED CORRELATE WITH MRI..
== END ==
LOC: RADCTMAIN 16:39
PROVIDERS: ATTEND Orthopaedic Surgery
DX: M12.812 Other specific arthropathies, not elsewhere classified, left shoulder (principal); R93.7 Abnormal findings on diagnostic imaging of other parts of musculoskeletal system

== ENCOUNTER → 2019-02-12 | Outpatient (CLI) | payer MEDICARE ==
--- NOTE | 2019-02-15 10:46 | MM ---
Reason for exam: screening (asymptomatic). Last mammogram was performed 1 year and 1 month ago. History: Patient is postmenopausal. Family history of breast cancer in sister at age 59 and breast cancer in sister. Benign stereotactic core biopsy of the left breast, June 18, 2002. Cyst aspiration of the left breast. Excisional biopsy of the right breast. Took hormonal contraceptives for 3 years beginning at age 23. Took estrogen for 8 years beginning at age 48. Physical Findings: A clinical breast exam by your physician is recommended on an annual basis and results should be correlated with mammographic findings. MG 3D Screening Mammo W/Cad Bilateral CC and MLO view(s) were taken. Prior study comparison: January 02, 2018, bilateral MG 3d screening mammo w/cad. December 05, 2016, bilateral MG 3d screening mammo w/cad. There are scattered fibroglandular densities. No significant changes when compared with prior studies. ASSESSMENT: Benign, BI-RAD 2 RECOMMENDATION: Routine screening mammogram of both breasts in 1 year.
== END | disposition home or self-care (01) ==
LOC: RADMAMWWP 09:42
PROVIDERS: ATTEND Obstetrics & Gynecology
DX: Z12.31 Encounter for screening mammogram for malignant neoplasm of breast (principal)
CPT/HCPCS: 77063; 77067

== ENCOUNTER → 2019-04-30 | Outpatient (CLI) | payer MEDICARE ==
--- NOTE | 2019-04-30 13:59 | CT ---
EXAMINATION TYPE: CT shoulder LT wo con DATE OF EXAM: 04/30/2019 COMPARISON: 01/15/2019 HISTORY: Acromion fx CT DLP: 249.[address] of the left shoulder with reconstruction imaging. TECHNIQUE: Unenhanced CT of the left shoulder was performed with bone and soft tissue window settings submitted in the axial coronal and sagittal planes. At a separate workstation [id number] TR imaging was ob tained. FINDINGS: No evidence for acute fracture or dislocation. Elevation of the humeral head relative to the central glenoid axis compatible with chronic rotator cu ff tear. Subchondral cyst formation noted throughout the humeral head. Glenohumeral joint space narro wing is severe in degree with loss of cartilage and subchondral cyst formation noted as well. Evidenc e of AC joint arthropathy. Joint effusion noted. Hypertrophic spur formation identified. IMPRESSION: 1. Stable features of chronic rotator cuff tear and severe glenohumeral joint space narrowing with xavier bchondral cyst formation and bony fragmentation and spur formation noted. 2. No evidence for acute fracture or dislocation.
== END | disposition home or self-care (01) ==
LOC: RADCTMAIN 13:17
PROVIDERS: ATTEND Orthopaedic Surgery
DX: M75.102 Unspecified rotator cuff tear or rupture of left shoulder, not specified as traumatic (principal); M25.812 Other specified joint disorders, left shoulder; M19.012 Primary osteoarthritis, left shoulder; M19.011 Primary osteoarthritis, right shoulder; S42.125 Nondisplaced fracture of acromial process, left shoulder; E03.8 Other specified hypothyroidism; Z87.09 Personal history of other diseases of the respiratory system

== ENCOUNTER → 2019-06-08 | Outpatient (CLI) | payer MEDICARE ==
--- NOTE | 2019-06-08 13:21 | NM ---
EXAMINATION TYPE: NM bone 3 phase DATE OF EXAM: 06/08/2019 COMPARISON: NONE HISTORY: Shoulder pain Triple phase bone scintigraphy was performed following the injection of 22.7 mCi Tc 99m MDP. Immedia te images and 5.5 hours post injection images acquired. FINDINGS: Perfusion is symmetric. There does appear to be increased soft tissue uptake on the left. Shoulder there is increased uptake involving both shoulders findings are most compatible with arthrop athy bilaterally. Abnormal uptake noted involving the lower thoracic and sacral junction. Suggestion of possible scolio sis. IMPRESSION: 1. Marked abnormal uptake involving the left shoulder response CT abnormality of severe arthritic sohan nges. Increased soft tissue uptake in the left could be posttraumatic or postinflammatory. Correlate clinically to exclude a cellulitis.
== END | disposition home or self-care (01) ==
LOC: RADNMMAIN 07:11
PROVIDERS: ATTEND Specialist
DX: M79.89 Other specified soft tissue disorders (principal); M19.012 Primary osteoarthritis, left shoulder; R93.7 Abnormal findings on diagnostic imaging of other parts of musculoskeletal system
CPT/HCPCS: 78315; A9503

== ENCOUNTER → 2020-05-26 | Outpatient (CLI) | payer MEDICARE ==
--- NOTE | 2020-05-29 10:17 | MM ---
Reason for exam: screening (asymptomatic). Last mammogram was performed 1 year and 3 months ago. History: Patient is postmenopausal. Family history of breast cancer in sister at age 59 and breast cancer in sister. Benign stereotactic core biopsy of the left breast, June 18, 2002. Cyst aspiration of the left breast. Excisional biopsy of the right breast. Took hormonal contraceptives for 3 years beginning at age 23. Took estrogen for 8 years beginning at age 48. Physical Findings: A clinical breast exam by your physician is recommended on an annual basis and results should be correlated with mammographic findings. MG 3D Screening Mammo W/Cad Bilateral CC and MLO view(s) were taken. Prior study comparison: February 12, 2019, bilateral MG 3d screening mammo w/cad. January 02, 2018, bilateral MG 3d screening mammo w/cad. The breast tissue is heterogeneously dense. This may lower the sensitivity of mammography. Previous mammotome biopsy in the left breast. No significant changes when compared with prior studies. ASSESSMENT: Benign, BI-RAD 2 RECOMMENDATION: Routine screening mammogram of both breasts in 1 year.
== END | disposition home or self-care (01) ==
LOC: RADMAMWWP 09:44
PROVIDERS: ATTEND Obstetrics & Gynecology
DX: Z12.31 Encounter for screening mammogram for malignant neoplasm of breast (principal)
CPT/HCPCS: 77063; 77067

== ENCOUNTER → 2020-09-05 | Outpatient (CLI) | payer MEDICARE ==
[2020-09-05 14:06] LABS: Basophils % (A) 1 %; Eosinophils # (A) 0.2 k/uL (0-0.7); Eosinophils % (A) 4 %; HCT 35.8 % (34.0-46.0); HGB 11.6 gm/dL (11.4-16.0); Lymphocytes # (A) 1.4 k/uL (1.0-4.8); Lymphocytes % (A) 26 %; MCH 31.9 pg (25.0-35.0); MCHC 32.4 g/dL (31.0-37.0); MCV 98.7 fL (80.0-100.0); Mean Platelet Volume 6.9; Monocytes # (A) 0.2 k/uL (0-1.0); Monocytes % (A) 4 %; Neutrophils # (A) 3.3 k/uL (1.3-7.7); Neutrophils % (A) 63 %; Platelet Count 140 k/uL (150-450); RBC 3.63 m/uL (3.80-5.40); RDW 13.5 % (11.5-15.5); WBC 5.3 k/uL (3.8-10.6)
--- NOTE | 2020-09-05 14:08 | XR ---
EXAMINATION TYPE: XR chest 2V DATE OF EXAM: 09/05/2020 COMPARISON: Prior chest 03/15/2013, 02/18/2018 HISTORY: Z01.818, E03.9 TECHNIQUE: Frontal and lateral views of the chest are obtained. FINDINGS: There is no focal air space opacity, pleural effusion, or pneumothorax seen. The cardiac silhouette size is within normal limits. Thoracic cord stimulator is present at the midthoracic spin e level, postop changes are noted to the lumbar cervical spine, left shoulder. Patient is rotated, th ere may be scoliosis. The aorta is dense. Degenerative disc changes are present in the visualized spi ne. Prominent lung lines with flattening the hemidiaphragms suggests underlying COPD. The osseous str uctures are intact. IMPRESSION: No acute cardiopulmonary process.
[2020-09-05 14:20] LABS: Prothrombin Time 10.4 sec (9.0-12.0)
[2020-09-05 14:21] LABS: Appearance,Urine Clear (Clear); Bilirubin,Urine Negative (Negative); Blood,Urine Negative (Negative); Color,Urine Light Yellow; Glucose,Urine (UA) Negative (Negative); Hyaline Casts,Urine 3 /lpf (0-2); Ketones,Urine Negative (Negative); Leukocyte Esterase,Urine Small (Negative); Mucus,Urine Rare /hpf; Nitrite,Urine Negative (Negative); PH, Urine 5.5 (5.0-8.0); Partial Thromboplastin Time 25.6 sec (22.0-30.0); Protein,Urine Negative (Negative); RBC,Urine 1 /hpf (0-5); Specific Gravity,Urine 1.013 (1.001-1.035); Urobilinogen,Urine <2.0 mg/dL (<2.0); WBC,Urine 18 /hpf (0-5)
[2020-09-05 19:40] LABS: African American GFR (CKD) 22.6 (60.0-200.0); Albumin 4.2 g/dL (3.80-4.90); Albumin/Globulin Ratio 1.91 (1.60-3.17); Anion Gap 6.9 mmol/L (4.00-12.00); BUN/Creat Ratio 25.83 Ratio (12.00-20.00); Calcium 8.7 mg/dL (8.7-10.3); Carbon Dioxide 25.1 mmol/L (21.6-31.8); Globulin 2.2 g/dL (1.6-3.3); Non-African American GFR(CKD) 19.5 (60.0-200.0); Potassium 5.7 mmol/L (3.5-5.5); Total Bilirubin 0.3 mg/dL (0.2-1.2); Total Protein 6.4 g/dL (6.2-8.2)
[2020-09-05 19:53] LABS: T4, Free (Free Thyroxine) 0.8 ng/dL (0.80-1.80)
== END | disposition home or self-care (01) ==
LOC: LABWHC1 12:35
PROVIDERS: ATTEND Nurse Practitioner Family
DX: Z01.818 Encounter for other preprocedural examination (principal); E03.9 Hypothyroidism, unspecified
CPT/HCPCS: 36415; 71046; 80053; 81001; 84439; 84443; 85025; 85610; 85730; 87086

== ENCOUNTER → 2021-06-27 | Outpatient (CLI) | payer MEDICARE ==
--- NOTE | 2021-06-28 13:59 | MM ---
Reason for exam: screening (asymptomatic). Last mammogram was performed 1 year and 1 month ago. History: Patient is postmenopausal. Family history of breast cancer in sister at age 59 and breast cancer in sister. Benign stereotactic core biopsy of the left breast, June 18, 2002. Cyst aspiration of the left breast. Excisional biopsy of the right breast. Took hormonal contraceptives for 3 years beginning at age 23. Took estrogen for 8 years beginning at age 48. Physical Findings: A clinical breast exam by your physician is recommended on an annual basis and results should be correlated with mammographic findings. MG 3D Screening Mammo W/Cad Bilateral CC and MLO view(s) were taken. XCCL view(s) were taken of the right breast. Prior study comparison: May 26, 2020, bilateral MG 3d screening mammo w/cad. February 12, 2019, bilateral MG 3d screening mammo w/cad. January 02, 2018, bilateral MG 3d screening mammo w/cad. There are scattered fibroglandular densities. No significant changes when compared with prior studies. ASSESSMENT: Benign, BI-RAD 2 RECOMMENDATION: Routine screening mammogram of both breasts in 1 year.
== END | disposition home or self-care (01) ==
LOC: RADMAMWWP 14:37
PROVIDERS: ATTEND Obstetrics & Gynecology
DX: Z12.31 Encounter for screening mammogram for malignant neoplasm of breast (principal); Z80.3 Family history of malignant neoplasm of breast; Z78.0 Asymptomatic menopausal state
CPT/HCPCS: 77063; 77067

== ENCOUNTER → 2022-09-18 | Outpatient (CLI) | payer MEDICARE ==
--- NOTE | 2022-09-18 18:08 | BD ---
EXAMINATION TYPE: Axial Bone Density DATE OF EXAM: 09/18/2022 COMPARISON: 01/02/2018 CLINICAL HISTORY: 76 years old Female. ICD-10 CODE: M81.0 KNOWN OSTEOPENIA Height: 62 Weight: 166 FRAX RISK QUESTIONS: Family History (Parent hip fracture): NO History of Fracture in Adulthood: YES SCAPULA LEFT 2018 Secondary Osteoporosis: NO Rheumatoid Arthritis: NO RISK FACTORS HISTORY OF: Surgery to Spine/Hip(right/left): YES ALL When: 2000 ,2010 Family History of Osteoporosis: NO Active: YES Diet low in dairy products/other sources of calcium: YES Postmenopausal woman: YES Lost more than 2 inches in height since high school: YES Frequent falls: NO Poor Health: NO Hyperparathyroidism: NO Adrenal Insufficiency: NO MEDICATIONS: Thyroid Medications: YES Which medication: Levothyroxine How Lon+ YE Additional Medications: YES PAIN PATCH, NEUROTIN , HEART MEDS, CALCIUM , CHOLESTEROL , VIT D , EXAM MEASUREMENTS: Bone mineral densitometry was performed using the [employer]. Bone mineral density about the L Wrist (g/cm2): 0.502 T Score values are as follows: -----Dist. R+U: -2.2 -----Prox. R+U: -2.4 -----Radius total: -2.9 Bone mineral density has: Decreased -1.6% since study of: 01/02/2018 FRAX%s: NONE IMPRESSION: Osteoporosis (T Score less than -2.5). There is increased fracture risk and therapy is usually indicated based on age. Re-Screen 1-2 years. NOTE: T-SCORE=SD OF THE YOUNG ADULT MEAN.
--- NOTE | 2022-09-19 14:14 | MM ---
Reason for Exam: Screening (asymptomatic). Last mammogram was performed 1 year(s) and 3 month(s) ago. Patient History: Menarche at age 14. First Full-Term at age 19. Postmenopausal. Estrogen for 8 years from age 48 until age 56. Hormonal Contraceptives for 3 years from age 23 until age 26. Cyst Aspiration on the Left side. Excisional Biopsy on the Right side. 06/18/2002, Benign Stereotactic Core Biopsy on the left side. Sister had breast cancer, age 59. Sister had breast cancer. Risk Values: Nneka 5 year model risk: 12.3%. NCI Lifetime model risk: 25.8%. Prior Study Comparison: 02/12/2019 Bilateral Screening Mammogram, [facility]. 05/26/2020 Bilateral Screening Mammogram, [facility]. 06/27/2021 Bilateral Screening Mammogram, [facility]. Tissue Density: The breast tissue is heterogeneously dense. This may lower the sensitivity of mammography. Findings: Analyzed By CAD. Pattern appears symmetrical and stable. Core marker is within the left breast. No significant interval change is evident. No suspicious groups of microcalcifications, spiculated or lobular masses, architectural distortion or other secondary signs of malignancy are mammographically apparent. Overall Assessment: Benign, BI-RAD 2 Management: Screening Mammogram of both breasts in 1 year. A negative mammogram report should not preclude additional follow up of suspicious palpable abnormalities. Patient should continue monthly self breast exam. A clinical breast exam by your physician is recommended on an annual basis and results should be correlated with mammographic findings. Electronically signed and approved by: Lloyd Cat D.O. Radiologis
== END | disposition home or self-care (01) ==
LOC: RADBDWWP 14:28
PROVIDERS: ATTEND Obstetrics & Gynecology
DX: Z12.31 Encounter for screening mammogram for malignant neoplasm of breast (principal); M81.0 Age-related osteoporosis without current pathological fracture; Z78.0 Asymptomatic menopausal state; Z80.3 Family history of malignant neoplasm of breast
CPT/HCPCS: 77063; 77067; 77081

== ENCOUNTER 2023-06-12 14:06 | Inpatient (IN) | payer MEDICARE ==
[2023-06-12] MEDS ORDERED: SODIUM CHLORIDE 0.9% 500 ML 500 ML IV STA (14:48)
[2023-06-12 14:54] LABS: Basophils % (A) 0 %; Eosinophils # (A) 0.3 k/uL (0-0.7); Eosinophils % (A) 5 %; HCT 40.3 % (34.0-46.0); HGB 12.7 gm/dL (11.4-16.0); Lymphocytes % (A) 16 %; MCHC 31.5 g/dL (31.0-37.0); MCV 98.4 fL (80.0-100.0); Mean Platelet Volume 7.8; Monocytes # (A) 0.4 k/uL (0-1.0); Monocytes % (A) 6 %; Neutrophils # (A) 4.4 k/uL (1.3-7.7); Neutrophils % (A) 72 %; Platelet Count 149 k/uL (150-450); RBC 4.09 m/uL (3.80-5.40); RDW 13.3 % (11.5-15.5); WBC 6.1 k/uL (3.8-10.6)
[2023-06-12 15:07] LABS: ALT 15 U/L (4-34); AST 27 U/L (14-36); African American GFR (CKD) 35 (>60 ml/min/1.73 sqM); Albumin 3.7 g/dL (3.5-5.0); Alkaline Phosphatase 66 U/L (38-126); Anion Gap 3 mmol/L; Blood Urea Nitrogen 32 mg/dL (7-17); Calcium 8.3 mg/dL (8.4-10.2); Carbon Dioxide 29 mmol/L (22-30); Chloride 105 mmol/L (98-107); Glucose 96 mg/dL (74-99); Magnesium 1.9 mg/dL (1.6-2.3); Non-African American GFR(CKD) 30 (>60 ml/min/1.73 sqM); Potassium 4.3 mmol/L (3.5-5.1); Sodium 137 mmol/L (137-145); Total Bilirubin 0.5 mg/dL (0.2-1.3); Total Protein 6.5 g/dL (6.3-8.2)
[2023-06-12 15:16] LABS: INR 0.9 (<1.2); Partial Thromboplastin Time 25.1 sec (22.0-30.0); Prothrombin Time 10.1 sec (9.0-12.0)
--- NOTE | 2023-06-12 15:18 | ED ---
General Adult HPI - General Chief complaint: Dizziness Stated complaint: Dizziness Time Seen by Provider: 06/12/23 14:10 Source: patient, RN notes reviewed, old records reviewed Mode of arrival: wheelchair Limitations: no limitations - History of Present Illness Initial comments: This is a 77-year-old female who presents emergency Department feeling lig htheaded over the last couple of days. Patient was stating that she is short of breath but she's always short of breath and it doesn't appear to be any worse. Patient denies any chest pain or palpitations. Patient just notes that even when sitting sometimes becomes very lightheaded like she might pass out. Patient denies any recent fever chills or cough or palpitations any abdominal pain palpitations nausea vomiting diarrhea. Patient currently is feeling back to her baseline while she was talking to me. - Related Data Home Medications Medication Instructions Recorded Confirmed Ascorbic Acid [Vitamin C] 1,000 mg PO DAILY 03/14/15 06/12/23 Levothyroxine Sodium [Synthroid] 175 mcg PO MOTUWETHFR@2100 03/14/15 06/12/23 Lovastatin [Mevacor] 40 mg PO HS 03/14/15 06/12/23 Multivitamins, Thera [Multivitamin 1 tab PO DAILY 03/14/15 06/12/23 (formulary)] Omeprazole 40 mg PO DAILY 03/14/15 06/12/23 Sertraline [Zoloft] 100 mg PO HS 03/14/15 06/12/23 fentaNYL 75MCG/HR PATCH [Duragesic 1 patch TRANSDERM Q72H 03/14/15 06/12/23 75MCG/HR] oxyCODONE HCL/ACETAMINOPHEN 1 tab PO TID PRN 03/14/15 06/12/23 [Percocet 10-325 mg] rOPINIRole HCL [Requip] 2 mg PO TID 03/14/15 06/12/23 Calcium Carbonate 1,500 mg PO DAILY 02/02/18 06/12/23 Albuterol Sulfate [Albuterol 1 - 2 puff PO RT-Q6H PRN 06/12/23 06/12/23 Sulfate Hfa] Cholecalciferol [Vitamin D3 (125 125 mcg PO DAILY 06/12/23 06/12/23 Mcg = 5000 Iu)] Cyanocobalamin (Vitamin B-12) 1,000 mcg PO DAILY 06/12/23 06/12/23 [Vitamin B-12] Ezetimibe [Zetia] 10 mg PO HS 06/12/23 06/12/23 Fluticasone/Umeclidin/Vilanter 1 puff INHALATION RT-DAILY PRN 06/12/23 06/12/23 [Trelegy Ellipta 200-62.5-25] Furosemide [Lasix] 40 mg PO DAILY 06/12/23 06/12/23 Gabapentin [Neurontin] 300 mg PO BID 06/12/23 06/12/23 Ginkgo Biloba [place] Extract [Ginkgo 125 mg PO DAILY 06/12/23 06/12/23 Biloba] Levothyroxine Sodium [Synthroid] 87.5 mcg PO JARAMILLO@2100 06/12/23 06/12/23 Zinc Gluconate [Zinc] 50 mg PO DAILY 06/12/23 06/12/23 allopurinoL [Zyloprim] 100 mg PO DAILY 06/12/23 06/12/23 carvediloL [Coreg] 12.5 mg PO BID 06/12/23 06/12/23 Allergies Allergy/AdvReac Type Severity Reaction Status Date / Time citalopram hydrobromide Allergy Itching Verified 06/12/23 16:07 [From Celexa] diazepam [From Valium] Allergy CHANGE IN Verified 06/12/23 16:07 MENTATION HEAVY METALS Allergy Unknown Uncoded 06/12/23 16:07 Review of Systems ROS Statement: Those systems with pertinent positive or pertinent negative responses have been documented in the HPI. ROS Other: All systems not noted in ROS Statement are negative. Past Medical History Past Medical History: Asthma, Chest Pain / Angina, COPD, GERD/Reflux, H yperlipidemia, Hypertension, Osteoarthritis (OA), Pneumonia, Skin Disorder, Thyroid Disorder Additional Past Medical History / Comment(s): bowel obstruction 14, broken heart syndrome, restless leg syndrome, scoliosis, HEPATITIS A? A CHILD,peptic ulcers, chronic back pain, HX OF goiter, kiko, ANNULARY GRANULOMA, osteoporosis, djd, rls, History of Any Multi-Drug Resistant Organisms: None Reported Past Surgical History: Back Surgery, Heart Catheterization, Hernia Repair, Joint Replacement, Orthopedic Surgery, Tubal Ligation Additional Past Surgical History / Comment(s): total thyroidectomy, rt knee arthroscopy, mildred knee replacements, mildred hip replacements with a revison to rt, lumbar fusion l1-s1, cervical fusion,lipoma removed ltarm, pain clinic procedures, neuro stimulator implanted, exploratory laparotomy, cecopexy, biopsy of mesenteric lymph node- neg, breast bx mildred-neg,repair of perforated ulcer(sx done at [facility]), mildred foot reconstructive sx -rt side done x2 Past Anesthesia/Blood Transfusion Reactions: Postoperative Nausea & Vomiting (PONV) Additional Past Anesthesia/Blood Transfusion Reaction / Comment(s): HX OF ASPIRATION WITH CERVICAL FUSION, Past Psychological History: Anxiety, Depression Past Alcohol Use History: Rare Past Drug Use History: None Reported - Past Family History Daughter(s) Family Medical History: No Reported History (patient has a daughter no major medical problem) Son(s) Family Medical History: No Reported History (patient has 2 sons no major medical problems) Father Family Medical History: Diabetes Mellitus (father at age of 62 from diabetes and congestive heart failure.) Mother Family Medical History: COPD, Rheumatoid Arthritis (RA) (mother at age of 68 from chronic obstructive pulmonary disease and rheumatoid arthritis.) Additional Family Medical History / Comment(s): emphysema, cervical fusions Sister(s) Family Medical History: Cancer, Deep Vein Thrombosis (DVT) (patient has 3 sisters all are living one with DVT the other one with breast cancer.) Additional Family Medical History / Comment(s): ONE SISTER HX OF DVT, ONE SISTER BREAST CA General Exam - General Exam Comments Initial Comments: GENERAL: Patient is well-developed and well-nourished. Patient is nontoxic and well- hydrated and is in mild distress. ENT: Neck is soft and supple. No significant lymphadenopathy is noted. Oropharynx is clear. Moist mucous membranes. Neck has full range of motion without eliciting any pain. EYES: The sclera were anicteric and conjunctiva were pink and moist. Extraocular movements were intact and pupils were equal round and reactive to light. Eyelids were unremarkable. PULMONARY: Unlabored respirations. Good breath sounds bilaterally. No audible rales rhonchi or wheezing was noted. CARDIOVASCULAR: Patient is bradycardic at about 40 beats a minute ABDOMEN: Soft and nontender with normal bowel sounds. SKIN: Skin is clear with no lesions or rashes and otherwise unremarkable. NEUROLOGIC: Patient is alert and oriented x3. Cranial nerves II through XII are grossly intact. Motor and sensory are also intact. Normal speech, volume and content. Symmetrical smile. Cerebellar exam grossly intact. MUSCULOSKELETAL: Normal extremities with adequate strength and full range of motion. No lower extremity swelling or edema. No calf tenderness. LYMPHATICS: No significant lymphadenopathy is noted PSYCHIATRIC: Normal psychiatric evaluation. Limitations: no limitations Course Vital Signs 06/12/23 06/12/23 06/12/23 14:07 14:39 14:50 Temperature 97.1 F L Pulse Rate 62 27 L Pulse Rate [ 58 L Left Prone Financial Planning Consultant ] Pulse Rate [ 51 L Left Sitting Financial Planning Consultant ] Pulse Rate [ 62 Left Supine Financial Planning Consultant ] Respiratory 16 16 Rate Blood Pressure 152/79 128/65 Blood Pressure 132/73 [Right Arm Sitting] Blood Pressure 128/82 [Right Arm Standing] Blood Pressure 120/90 [Right Arm Supine] O2 Sat by Pulse 90 L 97 Oximetry 06/12/23 06/12/23 16:28 16:45 Temperature Pulse Rate 54 L 48 L Pulse Rate [ Left Prone Financial Planning Consultant ] Pulse Rate [ Left Sitting Financial Planning Consultant ] Pulse Rate [ Left Supine Financial Planning Consultant ] Respiratory 16 18 Rate Blood Pressure 132/79 126/65 Blood Pressure [Right Arm Sitting] Blood Pressure [Right Arm Standing] Blood Pressure [Right Arm Supine] O2 Sat by Pulse 96 98 Oximetry Medical Decision Making - Medical Decision Making EKG shows sinus bradycardia at 36 bpm MT interval 190 QRS is 95 Q-T intervals 492 QTC is 43. Patient's EKG shows no ST segment elevation or depression Was pt. sent in by a medical professional or institution (, PA, ENTERPRISE APPLICATION ANALYST, urgent care, hospital, or custodial...) When possible be specific @ -No Did you speak to anyone other than the patient for history (EMS, parent, family, police, friend...)? What history was obtained from this source @ -No Did you review nursing and triage notes (agree or disagree)? Why? @ -I reviewed and agree with nursing and triage notes Were old charts reviewed (outside hosp., previous admission, EMS record, old EKG, old radiological studies, urgent care reports/EKG's, custodial records)? Report findings @ -I reviewed prior charts prior lab work on this patient Differential Diagnosis (chest pain, altered mental status, abdominal pain women, abdominal pain men, vaginal bleeding, weakness, fever, dyspnea, syncope, headache, dizziness, GI bleed, back pain, seizure, CVA, palpatations, mental health, musculoskeletal)? @ -Differential Syncope: Valvular disease, hypertrophic cardiomyopathy, pulmonary embolism, tamponade, tachycardia, bradycardia, MO, hypovolemia, hemorrhage, dissection, anemia, intracranial hemorrhage, seizure, hypoglycemia, carbon monoxide poisoning, this is not meant to be an all-inclusive list. EKG interpreted by me (3pts min.). @ -As above X-rays interpreted by me (1pt min.). @ -Chest x-ray shows no acute abnormality CT interpreted by me (1pt min.). @ -None done U/S interpreted by me (1pt. min.). @ -None done What testing was considered but not performed or refused? (CT, X-rays, U/S, labs)? Why? @ -None What meds were considered but not given or refused? Why? @ -None Did you discuss the management of the patient with other professionals (professionals i.e. , PA, ENTERPRISE APPLICATION ANALYST, lab, RT, psych nurse, social media editor, quality assurance assessor, teacher, debt recovery officer, welfare case worker)? Give summary @ -[facility] Was smoking cessation discussed for >3mins.? @ -No Was critical care preformed (if so, how long)? @ -No Were there social determinants of health that impacted care today? How? (Homelessness, low income, unemployed, alcoholism, drug addiction, transportation, low edu. Level, literacy, decrease access to med. care, [facility], rehab)? @ -No Was there de-escalation of care discussed even if they declined (Discuss DNR or withdrawal of care, Hospice)? DNR status @ -No What co-morbidities impacted this encounter? (DM, HTN, Smoking, COPD, CAD, Cancer, CVA, ARF, Chemo, Hep., AIDS, mental health diagnosis, sleep apnea, morbid obesity)? @ -None Was patient admitted / discharged? Hospital course, mention meds given and route, prescriptions, significant lab abnormalities, going to OR and other pertinent info. @ -Patient had multiple episodes of her heart rate slowing down into the upper 30s and 1 time into the upper 20s at which time she was lightheaded. But most of her ER course she remained asymptomatic. I spoke with [facility] hospitalist agreed to admit the patient admitted the patient I consult to cardiology Undiagnosed new problem with uncertain prognosis? @ -No] Drug Therapy requiring intensive monitoring for toxicity (Heparin, Nitro, Insulin, Cardizem)? @ -[No] Were any procedures done? @ -[No] Diagnosis/symptom? @ -Sinus bradycardia Acute, or Chronic, or Acute on Chronic? @ -Acute Uncomplicated (without systemic symptoms) or Complicated (systemic symptoms)? @ -Complicated Side effects of treatment? @ -[No] Exacerbation, Progression, or Severe Exacerbation? @ -[No] Poses a threat to life or bodily function? How? (Chest pain, USA, MO, pneumonia, PE, COPD, DKA, ARF, appy, cholecystitis, CVA, Diverticulitis, Homicidal, Suicidal, threat to staff... and all critical care pts) @ -[No] Diagnosis/symptom? @ -Near syncope Acute, or Chronic, or Acute on Chronic? @ -Acute Uncomplicated (without systemic symptoms) or Complicated (systemic symptoms)? @ -Complicated Side effects of treatment? @ -[none] Exacerbation, Progression, or Severe Exacerbation] @ -[no] Poses a threat to life or bodily function? @ -[no] - Lab Data Result diagrams: 06/12/23 14:28 06/12/23 14:28 Lab Results 06/12/23 06/12/23 06/12/23 Range/Units 14:28 14:28 14:28 WBC 6.1 (3.8-10.6) k/uL RBC 4.09 (3.80-5.40) m/uL Hgb 12.7 (11.4-16.0) gm/dL Hct 40.3 (34.0-46.0) % MCV 98.4 (80.0-100.0) fL MCH 31.0 (25.0-35.0) pg MCHC 31.5 (31.0-37.0) g/dL RDW 13.3 (11.5-15.5) % Plt Count 149 L (150-450) k/uL MPV 7.8 Neutrophils % 72 % Lymphocytes % 16 % Monocytes % 6 % Eosinophils % 5 % Basophils % 0 % Neutrophils # 4.4 (1.3-7.7) k/uL Lymphocytes # 1.0 (1.0-4.8) k/uL Monocytes # 0.4 (0-1.0) k/uL Eosinophils # 0.3 (0-0.7) k/uL Basophils # 0.0 (0-0.2) k/uL PT 10.1 (9.0-12.0) sec INR 0.9 (<1.2) APTT 25.1 (22.0-30.0) sec Sodium 137 (137-145) mmol/L Potassium 4.3 (3.5-5.1) mmol/L Chloride 105 (98-107) mmol/L Carbon Dioxide 29 (22-30) mmol/L Anion Gap 3 mmol/L BUN 32 H (7-17) mg/dL Creatinine 1.64 H (0.52-1.04) mg/dL Est GFR (CKD-EPI)AfAm 35 (>60 ml/min/1.73 sqM) Est GFR (CKD-EPI)NonAf 30 (>60 ml/min/1.73 sqM) Glucose 96 (74-99) mg/dL Calcium 8.3 L (8.4-10.2) mg/dL Magnesium 1.9 (1.6-2.3) mg/dL Total Bilirubin 0.5 (0.2-1.3) mg/dL AST 27 (14-36) U/L ALT 15 (4-34) U/L Alkaline Phosphatase 66 (38-126) U/L Troponin I (0.000-0.034) ng/mL Total Protein 6.5 (6.3-8.2) g/dL Albumin 3.7 (3.5-5.0) g/dL TSH <0.015 L (0.465-4.680) mIU/L 06/12/23 Range/Units 14:28 WBC (3.8-10.6) k/uL RBC (3.80-5.40) m/uL Hgb (11.4-16.0) gm/dL Hct (34.0-46.0) % MCV (80.0-100.0) fL MCH (25.0-35.0) pg MCHC (31.0-37.0) g/dL RDW (11.5-15.5) % Plt Count (150-450) k/uL MPV Neutrophils % % Lymphocytes % % Monocytes % % Eosinophils % % Basophils % % Neutrophils # (1.3-7.7) k/uL Lymphocytes # (1.0-4.8) k/uL Monocytes # (0-1.0) k/uL Eosinophils # (0-0.7) k/uL Basophils # (0-0.2) k/uL PT (9.0-12.0) sec INR (<1.2) APTT (22.0-30.0) sec Sodium (137-145) mmol/L Potassium (3.5-5.1) mmol/L Chloride (98-107) mmol/L Carbon Dioxide (22-30) mmol/L Anion Gap mmol/L BUN (7-17) mg/dL Creatinine (0.52-1.04) mg/dL Est GFR (CKD-EPI)AfAm (>60 ml/min/1.73 sqM) Est GFR (CKD-EPI)NonAf (>60 ml/min/1.73 sqM) Glucose (74-99) mg/dL Calcium (8.4-10.2) mg/dL Magnesium (1.6-2.3) mg/dL Total Bilirubin (0.2-1.3) mg/dL AST (14-36) U/L ALT (4-34) U/L Alkaline Phosphatase (38-126) U/L Troponin I <0.012 (0.000-0.034) ng/mL Total Protein (6.3-8.2) g/dL Albumin (3.5-5.0) g/dL TSH (0.465-4.680) mIU/L Disposition Clinical Impression: Sinus bradycardia, Near syncope Disposition: ADMITTED IP TO THIS [facility] Referrals: Geo Low MD [Primary Care Provider] - 1-2 days Time of Disposition: 17:21
--- NOTE | 2023-06-12 15:25 | XR ---
EXAMINATION TYPE: XR chest 2V DATE OF EXAM: 06/12/2023 COMPARISON: 09/05/2020 TECHNIQUE: PA and lateral views submitted. HISTORY: Dysrhythmia FINDINGS: No pneumothorax. Small left pleural effusion with basilar infiltrate. Osseous structures demonstrate hypertrophic and degenerative changes of the spine. Diffuse hyperinflation compatible emphysema. Ther e is postsurgical change involving the bilateral shoulder and left clavicle. This previous surgery in volving the thoracolumbar junction and cervical spine and there is a metallic leads stable in positio n overlying the thoracic spine. Atherosclerotic change aorta. IMPRESSION: 1. COPD, cardiomegaly and left lower lobe infiltrate with small pleural effusion..
[2023-06-12] MEDS ORDERED: ACETAMINOPHEN TAB 325 MG TAB PO PRN (19:02)
[2023-06-12] MEDS ORDERED: oxyCODONE-APAP 10-325MG 1 EACH TAB PO PRN (19:03)
[2023-06-12] MEDS ORDERED: ALBUTEROL NEBULIZED 2.5 MG/3 ML INHALATION PRN (19:03)
[2023-06-12] MEDS ORDERED: IPRATROPIUM 0.5 MG/2.5 ML NEBU INHALATION PRN (19:03)
[2023-06-12] MEDS: GABAPENTIN 300 MG CAP PO SCH (20:50)
[2023-06-12] MEDS: ATORVASTATIN 10 MG TAB PO SCH (20:50)
[2023-06-12] MEDS: SERTRALINE 100 MG TAB PO SCH (20:50)
[2023-06-12] MEDS: EZETIMIBE 10 MG TAB PO SCH (20:50)
[2023-06-13 04:19] LABS: T4, Free (Free Thyroxine) 2.17 ng/dL (0.78-2.19)
[2023-06-13] MEDS: PANTOPRAZOLE 40 MG TABLET PO SCH (06:14)
[2023-06-13] MEDS: allopurinoL 100 MG TAB PO SCH (08:23)
[2023-06-13] MEDS: GABAPENTIN 300 MG CAP PO SCH ×2 (08:23→20:31)
[2023-06-13] MEDS: SYMBICORT 160-4.5 MCG INHALER INHALATION PRN ×2 (08:39→21:16)
--- NOTE | 2023-06-13 10:18 | P.CRDCN ---
History of Present Illness History of present illness: HISTORY OF PRESENTING ILLNESS Patient is pleasant 77-year-old female with history of hypothyroidism, hyperlipidemia, asthma, GERD, prior Takotsubo's cardiomyopathy, restless leg syndrome, I will coronary arteries by heart catheterization 2014. She follows in the office with myself. Unfortunately over the last 1-2 days she has been having increased episodes of feeling lightheaded. Both the time this occurs when she is standing or walking however not necessarily when she goes from [place] to standing position. She felt at times like she was going to pass out and therefore came to emergency department. She did have one episode in the ER where apparently her heart rate went down to 27 and she was somewhat lightheaded. She admits this felt somewhat similar to what was going on at home. She has been on the carvedilol as well as TSH was noted to be significantly low 0.015 however free T4 and free T3 borderline elevated 2.1 and 3.7 respectively. She denies any chest pain or pressure. She does have chronic dyspnea. She also has chronic mild lower extremity edema which appears more related to venous insufficiency. Telemetry reviewed with sinus bradycardia heart rates in the 40s to 50s as well as pauses up to 2.5 seconds. REVIEW OF SYSTEMS At the time of my exam: CONSTITUTIONAL: Denies fever or chills. CARDIOVASCULAR: Denies chest pain, +chronic shortness of breath, no orthopnea, PND or palpitations. RESPIRATORY: Denies cough. GASTROINTESTINAL: Denies abdominal pain, diarrhea, constipation, nausea or vomiting. MUSCULOSKELETAL: Denies myalgias. NEUROLOGIC: Denies numbness, tingling or weakness. ENDOCRINE: Denies fatigue, weight change, polydipsia or polyurina. GENITOURINARY: Denies burning, hematuria or urgency with micturation. HEMATOLOGIC: Denies history of anemia or bleeding. PHYSICAL EXAMINATION Vital signs reviewed. CONSTITUTIONAL: No apparent distress. HEENT: Head is normocephalic. Pupils are equal, round. Sclerae anicteric. Mucous membranes of the mouth are moist. No JVD. No carotid bruit. CHEST EXAMINATION: Lungs are clear to auscultation. No chest wall tenderness is noted on palpation or with deep breathing. HEART EXAMINATION: Regular rate and rhythm. S1, S2 heard. No murmurs, gallops or rub. ABDOMEN: Soft, nontender. Positive bowel sounds. EXTREMITIES: 2+ peripheral pulses, no lower extremity edema and no calf tenderness. NEUROLOGIC EXAMINATION: Patient is awake, alert and oriented x3. ASSESSMENT 1. Lightheadedness, may be related to bradycardia 2. Sinus bradycardia likely in part related to carvedilol as well as possibly thyroid 3. History of hypothyroidism, hyperthyroid by blood work 4. Chronic dyspnea 5. Hypertension 6. Normal coronary arteries by prior heart catheterization 7. Chronic diastolic heart failure PLAN Patient with episode in the ER with heart rates down to 27 where she was symptomatic. She has however been on the carvedilol and we will hold. Monitor response and if she does have continued symptomatic bradycardia she will likely need PPM. Check 2-D echo. Thyroid adjustments per internal medicine and check repeat TSH given T3, T4 not significantly elevated and hyperthyroid should not be causing bradycardia. Monitor for 24 hrs and if HR's improve, likely DC home with outpt monitor. Past Medical History Past Medical History: Asthma, Chest Pain / Angina, COPD, GERD/Reflux, Hyperlipidemia, Osteoarthritis (OA), Pneumonia, Thyroid Disorder Additional Past Medical History / Comment(s): bowel obstruction 12, broken heart syndrome, restless leg syndrome, scoliosis, HEPATITIS A? A CHILD,peptic ulcers, chronic back pain, HX OF goiter, kiko, ANNULARY GRANULOMA, osteoporosis, djd, rls, History of Any Multi-Drug Resistant Organisms: None Reported Past Surgical History: Back Surgery, Heart Catheterization, Hernia Repair, Joint Replacement, Orthopedic Surgery, Tubal Ligation Additional Past Surgical History / Comment(s): total thyroidectomy, rt knee arthroscopy, mildred knee replacements, mildred hip replacements with a revison to rt, lumbar fusion l1-s1, cervical fusion,lipoma removed ltarm, pain clinic procedures, neuro stimulator implanted, exploratory laparotomy, cecopexy, biopsy of mesenteric lymph node- neg, breast bx mildred-neg,repair of perforated ulcer(sx done at [facility]), mildred foot reconstructive sx -rt side done x2 Past Anesthesia/Blood Transfusion Reactions: Postoperative Nausea & Vomiting (PONV) Additional Past Anesthesia/Blood Transfusion Reaction / Comment(s): HX OF ASPIRATION WITH CERVICAL FUSION, Past Psychological History: Anxiety, Depression Additional Psychological History / Comment(s): pt lives by herself, 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 Smoking Status: Former smoker Past Alcohol Use History: Rare Additional Past Alcohol Use History / Comment(s): smoked x 10 years 1ppd, quit in 1990 Past Drug Use History: None Reported - Past Family History Daughter(s) Family Medical History: No Reported History Son(s) Family Medical History: No Reported History Father Family Medical History: Diabetes Mellitus Mother Family Medical History: COPD, Rheumatoid Arthritis (RA) Additional Family Medical History / Comment(s): emphysema, cervical fusions Sister(s) Family Medical History: Cancer, Deep Vein Thrombosis (DVT) Additional Family Medical History / Comment(s): ONE SISTER HX OF DVT, ONE SISTER BREAST CA Medications and Allergies Home Medications Medication Instructions Recorded Confirmed Type Ascorbic Acid [Vitamin C] 1,000 mg PO DAILY 03/14/15 06/12/23 History Levothyroxine Sodium [Synthroid] 175 mcg PO MOTUWETHFR@2100 03/14/15 06/12/23 History Lovastatin [Mevacor] 40 mg PO HS 03/14/15 06/12/23 History Multivitamins, Thera [Multivitamin 1 tab PO DAILY 03/14/15 06/12/23 History (formulary)] Omeprazole 40 mg PO DAILY 03/14/15 06/12/23 History Sertraline [Zoloft] 100 mg PO HS 03/14/15 06/12/23 History fentaNYL 75MCG/HR PATCH [Duragesic 1 patch TRANSDERM Q72H 03/14/15 06/12/23 History 75MCG/HR] oxyCODONE HCL/ACETAMINOPHEN 1 tab PO TID PRN 03/14/15 06/12/23 History [Percocet 10-325 mg] rOPINIRole HCL [Requip] 2 mg PO TID 03/14/15 06/12/23 History Calcium Carbonate 1,500 mg PO DAILY 02/02/18 06/12/23 History Albuterol Sulfate [Albuterol 1 - 2 puff PO RT-Q6H PRN 06/12/23 06/12/23 History Sulfate Hfa] Cholecalciferol [Vitamin D3 (125 125 mcg PO DAILY 06/12/23 06/12/23 History Mcg = 5000 Iu)] Cyanocobalamin (Vitamin B-12) 1,000 mcg PO DAILY 06/12/23 06/12/23 History [Vitamin B-12] Ezetimibe [Zetia] 10 mg PO HS 06/12/23 06/12/23 History Fluticasone/Umeclidin/Vilanter 1 puff INHALATION RT-DAILY PRN 06/12/23 06/12/23 History [Trelegy Ellipta 200-62.5-25] Furosemide [Lasix] 40 mg PO DAILY 06/12/23 06/12/23 History Gabapentin [Neurontin] 300 mg PO BID 06/12/23 06/12/23 History Ginkgo Biloba [place] Extract [Ginkgo 125 mg PO DAILY 06/12/23 06/12/23 History Biloba] Levothyroxine Sodium [Synthroid] 87.5 mcg PO JARAMILLO@2100 06/12/23 06/12/23 History Zinc Gluconate [Zinc] 50 mg PO DAILY 06/12/23 06/12/23 History allopurinoL [Zyloprim] 100 mg PO DAILY 06/12/23 06/12/23 History carvediloL [Coreg] 12.5 mg PO BID 06/12/23 06/12/23 History Allergies Allergy/AdvReac Type Severity Reaction Status Date / Time citalopram hydrobromide Allergy Itching Verified 06/12/23 16:07 [From Celexa] diazepam [From Valium] Allergy CHANGE IN Verified 06/12/23 16:07 MENTATION HEAVY METALS Allergy Unknown Uncoded 06/12/23 16:07 Physical Exam Vitals: Vital Signs Temp Pulse Pulse Pulse Pulse Pulse Resp 06/13/23 08:40 06/13/23 08:26 97.7 F 50 L 16 06/13/23 04:00 55 L 16 06/12/23 23:41 98.1 F 57 L 16 06/12/23 21:14 98.1 F 55 L 17 06/12/23 17:53 56 L 18 06/12/23 16:45 48 L 18 06/12/23 16:28 54 L 16 06/12/23 14:50 58 L 51 L 62 06/12/23 14:39 27 L 16 06/12/23 14:07 97.1 F L 62 16 BP BP BP BP BP Pulse Ox 06/13/23 08:40 97 06/13/23 08:26 126/74 93 L 06/13/23 04:00 122/59 95 06/12/23 23:41 138/69 93 L 06/12/23 21:14 112/68 95 06/12/23 17:53 116/64 98 06/12/23 16:45 126/65 98 06/12/23 16:28 132/79 96 06/12/23 14:50 132/73 128/82 120/90 06/12/23 14:39 128/65 97 06/12/23 14:07 152/79 90 L Intake and Output 06/12/23 06/13/23 06/13/23 22:59 06:59 14:59 Intake Total 480 0 Balance 480 0 Intake: Oral 480 0 Other: Voiding Method Toilet # Voids 2 Weight 72.575 kg Results 06/12/23 14:28 06/12/23 14:28 Cardiac Enzymes 06/12/23 06/12/23 06/12/23 Range/Units 14:28 14:28 21:04 AST 27 (14-36) U/L Troponin I <0.012 <0.012 (0.000-0.034) ng/mL 06/12/23 Range/Units 23:47 AST (14-36) U/L Troponin I <0.012 (0.000-0.034) ng/mL Coagulation 06/12/23 Range/Units 14:28 PT 10.1 (9.0-12.0) sec APTT 25.1 (22.0-30.0) sec CBC 06/12/23 Range/Units 14:28 WBC 6.1 (3.8-10.6) k/uL RBC 4.09 (3.80-5.40) m/uL Hgb 12.7 (11.4-16.0) gm/dL Hct 40.3 (34.0-46.0) % Plt Count 149 L (150-450) k/uL Comprehensive Metabolic Panel 06/12/23 Range/Units 14:28 Sodium 137 (137-145) mmol/L Potassium 4.3 (3.5-5.1) mmol/L Chloride 105 (98-107) mmol/L Carbon Dioxide 29 (22-30) mmol/L BUN 32 H (7-17) mg/dL Creatinine 1.64 H (0.52-1.04) mg/dL Glucose 96 (74-99) mg/dL Calcium 8.3 L (8.4-10.2) mg/dL AST 27 (14-36) U/L ALT 15 (4-34) U/L Alkaline Phosphatase 66 (38-126) U/L Total Protein 6.5 (6.3-8.2) g/dL Albumin 3.7 (3.5-5.0) g/dL Current Medications Generic Name Dose Route Start Last Admin Trade Name Freq PRN Reason Stop Dose Admin Acetaminophen 650 mg 06/12/23 19:02 Acetaminophen Tab 325 Mg Tab PO Q6HR PRN Mild Pain or Fever > 100.5 Albuterol Sulfate 2.5 mg 06/12/23 19:03 Albuterol Nebulized 2.5 Mg/3 Ml INHALATION RT-Q6H PRN Shortness Of Breath Allopurinol 100 mg 06/13/23 09:00 06/13/23 08:23 Allopurinol 100 Mg Tab PO 100 mg DAILY NAZIA Administration Atorvastatin Calcium 10 mg 06/12/23 21:00 06/12/23 20:50 Atorvastatin 10 Mg Tab PO 10 mg HS NAZIA Administration Budesonide/Formoterol Fumarate 2 puff 06/12/23 19:15 06/13/23 08:39 Symbicort 160-4.5 Mcg Inhaler INHALATION 2 puff RT-BID PRN Administration Shortness Of Breath Ezetimibe 10 mg 06/12/23 21:00 06/12/23 20:50 Ezetimibe 10 Mg Tab PO 10 mg HS NAZIA Administration Enoxaparin Sodium 40 mg 06/14/23 09:00 Enoxaparin 40 Mg/0.4 Ml Syringe SQ DAILY [facility] Fentanyl 1 patch 06/14/23 09:00 Fentanyl 75mcg/Hr Patch TRANSDERM Q72H [facility] Protocol Gabapentin 300 mg 06/12/23 21:00 06/13/23 08:23 Gabapentin 300 Mg Cap PO 300 mg BID NAZIA Administration Ipratropium [place] 0.5 mg 06/12/23 19:03 Ipratropium 0.5 Mg/2.5 Ml Nebu INHALATION RT-QID PRN Shortness Of Breath Oxycodone/Acetaminophen 1 each 06/12/23 19:03 Oxycodone-Apap 10-325mg 1 Each Tab PO TID PRN Pain Pantoprazole Sodium 40 mg 06/13/23 07:30 06/13/23 06:14 Pantoprazole 40 Mg Tablet PO 40 mg [id number] NAZIA Administration Ropinirole HCl 2 mg 06/12/23 22:00 06/13/23 08:23 Ropinirole Hcl 1 Mg Tab PO 2 mg TID NAZIA Administration Sertraline HCl 100 mg 06/12/23 21:00 06/12/23 20:50 Sertraline 100 Mg Tab PO 100 mg HS NAZIA Administration Intake and Output 06/12/23 06/13/23 06/13/23 22:59 06:59 14:59 Intake Total 480 0 Balance 480 0 Intake: Oral 480 0 Other: Voiding Method Toilet # Voids 2 Weight 72.575 kg 06/12/23 14:28 06/12/23 14:28
--- NOTE | 2023-06-13 12:35 | P.HPIM ---
History of Present Illness H&P Date: 06/13/23 Chief Complaint: Dizziness * 77-year-old lady with past medical history significant for hypothyroid, chronic pain syndrome, hypertension, COPD presented to the emergency depart ment with episode of lightheadedness.. Patient does complain of worsening shortness of breath on top of her issues of chronic dyspnea. She denied any associated fever, chills, chest pain or neurological deficit * Workup initiated in ER included CBC which showed platelet count of 149. PT/INR within normal limits. Serum chemistry showed No 1164 of 32. Serial troponins obtained which remained negative. * TSH was 0.015 with PT INR within normal limits * Patient to be admitted to medical floor with consultation from cardiology for evaluation of symptomatic bradycardia REVIEW OF SYSTEMS: Dizziness, CONSTITUTIONAL: No fever, no malaise, no fatigue. HEENT: No recent visual problems or hearing problems. Denied any sore throat. CARDIOVASCULAR: No chest pain, orthopnea, PND, no palpitations, no syncope. PULMONARY: No shortness of breath, no cough, no hemoptysis. GASTROINTESTINAL: No diarrhea, no nausea, no vomiting, no abdominal pain. NEUROLOGICAL: No headaches, no weakness, no numbness. HEMATOLOGICAL: Denies any bleeding or petechiae. GENITOURINARY: Denies any burning micturition, frequency, or urgency. MUSCULOSKELETAL/RHEUMATOLOGICAL: Denies any joint pain, swelling, or any muscle pain. ENDOCRINE: Denies any polyuria or polydipsia. The rest of the 14-point review of systems is negative. PHYSICAL EXAMINATION: GENERAL: The patient is alert and oriented x3, not in any acute distress. Well developed, well nourished. HEENT: Pupils are round and equally reacting to light. EOMI. No scleral icterus. No conjunctival pallor. Normocephalic, atraumatic. No pharyngeal erythema. No thyromegaly. CARDIOVASCULAR: S1 and S2 present. Bradycardia noted PULMONARY: Chest is clear to auscultation, no wheezing or crackles. ABDOMEN: Soft, nontender, nondistended, normoactive bowel sounds. No palpable organomegaly. MUSCULOSKELETAL: No joint swelling or deformity. EXTREMITIES: No cyanosis, clubbing, or pedal edema. NEUROLOGICAL: Gross neurological examination did not reveal any focal deficits. SKIN: No rashes. Past Medical History Past Medical History: Asthma, Chest Pain / Angina, COPD, GERD/Reflux, Hyperlipidemia, Osteoarthritis (OA), Pneumonia, Thyroid Disorder Additional Past Medical History / Comment(s): bowel obstruction 12, broken heart syndrome, restless leg syndrome, scoliosis, HEPATITIS A? A CHILD,peptic ulcers, chronic back pain, HX OF goiter, kiko, ANNULARY GRANULOMA, osteoporosis, djd, rls, History of Any Multi-Drug Resistant Organisms: None Reported Past Surgical History: Back Surgery, Heart Catheterization, Hernia Repair, Joint Replacement, Orthopedic Surgery, Tubal Ligation Additional Past Surgical History / Comment(s): total thyroidectomy, rt knee arthroscopy, mildred knee replacements, mildred hip replacements with a revison to rt, lumbar fusion l1-s1, cervical fusion,lipoma removed ltarm, pain clinic p rocedures, neuro stimulator implanted, exploratory laparotomy, cecopexy, biopsy of mesenteric lymph node- neg, breast bx mildred-neg,repair of perforated ulcer(sx done at [facility]), mildred foot reconstructive sx -rt side done x2 Past Anesthesia/Blood Transfusion Reactions: Postoperative Nausea & Vomiting (PONV) Additional Past Anesthesia/Blood Transfusion Reaction / Comment(s): HX OF ASPIRATION WITH CERVICAL FUSION, Past Psychological History: Anxiety, Depression Additional Psychological History / Comment(s): pt lives by herself, 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 Smoking Status: Former smoker Past Alcohol Use History: Rare Additional Past Alcohol Use History / Comment(s): smoked x 10 years 1ppd, quit in 1990 Past Drug Use History: None Reported - Past Family History Daughter(s) Family Medical History: No Reported History Son(s) Family Medical History: No Reported History Father Family Medical History: Diabetes Mellitus Mother Family Medical History: COPD, Rheumatoid Arthritis (RA) Additional Family Medical History / Comment(s): emphysema, cervical fusions Sister(s) Family Medical History: Cancer, Deep Vein Thrombosis (DVT) Additional Family Medical History / Comment(s): ONE SISTER HX OF DVT, ONE SISTER BREAST CA Medications and Allergies Home Medications Medication Instructions Recorded Confirmed Type Ascorbic Acid [Vitamin C] 1,000 mg PO DAILY 03/14/15 06/12/23 History Levothyroxine Sodium [Synthroid] 175 mcg PO MOTUWETHFR@2100 03/14/15 06/12/23 History Lovastatin [Mevacor] 40 mg PO HS 03/14/15 06/12/23 History Multivitamins, Thera [Multivitamin 1 tab PO DAILY 03/14/15 06/12/23 History (formulary)] Omeprazole 40 mg PO DAILY 03/14/15 06/12/23 History Sertraline [Zoloft] 100 mg PO HS 03/14/15 06/12/23 History fentaNYL 75MCG/HR PATCH [Duragesic 1 patch TRANSDERM Q72H 03/14/15 06/12/23 History 75MCG/HR] oxyCODONE HCL/ACETAMINOPHEN 1 tab PO TID PRN 03/14/15 06/12/23 History [Percocet 10-325 mg] rOPINIRole HCL [Requip] 2 mg PO TID 03/14/15 06/12/23 History Calcium Carbonate 1,500 mg PO DAILY 02/02/18 06/12/23 History Albuterol Sulfate [Albuterol 1 - 2 puff PO RT-Q6H PRN 06/12/23 06/12/23 History Sulfate Hfa] Cholecalciferol [Vitamin D3 (125 125 mcg PO DAILY 06/12/23 06/12/23 History Mcg = 5000 Iu)] Cyanocobalamin (Vitamin B-12) 1,000 mcg PO DAILY 06/12/23 06/12/23 History [Vitamin B-12] Ezetimibe [Zetia] 10 mg PO HS 06/12/23 06/12/23 History Fluticasone/Umeclidin/Vilanter 1 puff INHALATION RT-DAILY PRN 06/12/23 06/12/23 History [Trelegy Ellipta 200-62.5-25] Furosemide [Lasix] 40 mg PO DAILY 06/12/23 06/12/23 History Gabapentin [Neurontin] 300 mg PO BID 06/12/23 06/12/23 History Ginkgo Biloba [place] Extract [Ginkgo 125 mg PO DAILY 06/12/23 06/12/23 History Biloba] Levothyroxine Sodium [Synthroid] 87.5 mcg PO JARAMILLO@2100 06/12/23 06/12/23 History Zinc Gluconate [Zinc] 50 mg PO DAILY 06/12/23 06/12/23 History allopurinoL [Zyloprim] 100 mg PO DAILY 06/12/23 06/12/23 History carvediloL [Coreg] 12.5 mg PO BID 06/12/23 06/12/23 History Allergies Allergy/AdvReac Type Severity Reaction Status Date / Time citalopram hydrobromide Allergy Itching Verified 06/12/23 16:07 [From Celexa] diazepam [From Valium] Allergy CHANGE IN Verified 06/12/23 16:07 MENTATION HEAVY METALS Allergy Unknown Uncoded 06/12/23 16:07 Physical Exam Vitals: Vital Signs Temp Pulse Pulse Pulse Pulse Pulse Resp 06/13/23 08:40 06/13/23 08:26 97.7 F 56 L 16 06/13/23 04:00 55 L 16 06/12/23 23:41 98.1 F 57 L 16 06/12/23 21:14 98.1 F 55 L 17 06/12/23 17:53 56 L 18 06/12/23 16:45 48 L 18 06/12/23 16:28 54 L 16 06/12/23 14:50 58 L 51 L 62 06/12/23 14:39 27 L 16 06/12/23 14:07 97.1 F L 62 16 BP BP BP BP BP Pulse Ox 06/13/23 08:40 97 06/13/23 08:26 126/74 93 L 06/13/23 04:00 122/59 95 06/12/23 23:41 138/69 93 L 06/12/23 21:14 112/68 95 06/12/23 17:53 116/64 98 06/12/23 16:45 126/65 98 06/12/23 16:28 132/79 96 06/12/23 14:50 132/73 128/82 120/90 06/12/23 14:39 128/65 97 06/12/23 14:07 152/79 90 L Intake and Output 06/12/23 06/13/23 06/13/23 22:59 06:59 14:59 Intake Total 480 0 Balance 480 0 Intake: Oral 480 0 Other: # Voids 2 Weight 72.575 kg Results CBC & Chem 7: 06/12/23 14:28 06/12/23 14:28 Labs: Abnormal Lab Results - Last 24 Hours (Table) 06/12/23 06/12/23 Range/Units 14:28 14:28 Plt Count 149 L (150-450) k/uL BUN 32 H (7-17) mg/dL Creatinine 1.64 H (0.52-1.04) mg/dL Calcium 8.3 L (8.4-10.2) mg/dL TSH <0.015 L (0.465-4.680) mIU/L Thrombosis Risk Factor Assmnt - Choose All That Apply Any of the Below Risk Factors Present?: Yes Each Factor Represents 1 point: Abnormal pulmonary function (COPD) Other Risk Factors: Yes Each Risk Factor Represents 3 Points: Age 75 years or older Other congenital or acquired thrombophilia - If yes, enter type in comment: No Thrombosis Risk Factor Assessment Total Risk Factor Score: 4 Thrombosis Risk Factor Assessment Level: Moderate Risk Assessment and Plan Assessment: Assessment and plan * Bradycardia symptomatic * Hypertension * Chronic pain syndrome * COPD * Hypothyroidism * Serial troponins and EKG obtained, cardiology consulted * Hold AV shelbie blocking agents, coronary discontinued * Continue patient on telemetry monitoring echocardiogram ordered * In regard to chronic pain syndrome continue home regimen including Percocet, gabapentin, fentanyl patch * CODE STATUS is full code
[2023-06-13 16:45] LABS: Appearance,Urine Clear (Clear); Bilirubin,Urine Negative (Negative); Blood,Urine Negative (Negative); Color,Urine Light Yellow; Glucose,Urine (UA) Negative (Negative); Ketones,Urine Negative (Negative); Leukocyte Esterase,Urine Small (Negative); Nitrite,Urine Negative (Negative); PH, Urine 5.5 (5.0-8.0); Protein,Urine Negative (Negative); RBC,Urine 1 /hpf (0-5); Specific Gravity,Urine 1.011 (1.001-1.035); Urobilinogen,Urine <2.0 mg/dL (<2.0); WBC,Urine 9 /hpf (0-5)
[2023-06-13 16:46] LABS: Mucus,Urine Rare /hpf; Squamous Epithelial Cell,Urine 1 /hpf (0-4)
[2023-06-13] MEDS: ATORVASTATIN 10 MG TAB PO SCH (20:31)
[2023-06-13] MEDS: EZETIMIBE 10 MG TAB PO SCH (20:31)
[2023-06-13] MEDS: SERTRALINE 100 MG TAB PO SCH (20:32)
[2023-06-14] MEDS: PANTOPRAZOLE 40 MG TABLET PO SCH (07:02)
[2023-06-14 08:46] LABS: African American GFR (CKD) 52 (>60 ml/min/1.73 sqM); Anion Gap 5 mmol/L; Blood Urea Nitrogen 23 mg/dL (7-17); Calcium 8.2 mg/dL (8.4-10.2); Carbon Dioxide 29 mmol/L (22-30); Chloride 106 mmol/L (98-107); Glucose 123 mg/dL (74-99); Non-African American GFR(CKD) 45 (>60 ml/min/1.73 sqM); Potassium 4.7 mmol/L (3.5-5.1); Sodium 140 mmol/L (137-145)
[2023-06-14] MEDS ORDERED: ENOXAPARIN 40 MG/0.4 ML SYRINGE SQ SCH (09:00)
[2023-06-14] MEDS: GABAPENTIN 300 MG CAP PO SCH (09:58)
[2023-06-14] MEDS: allopurinoL 100 MG TAB PO SCH (09:58)
[2023-06-14 10:28] VITALS: RESP 16
--- NOTE | 2023-06-14 13:52 | P.PN ---
Subjective Progress Note Date: 06/14/23 * 77-year-old lady with past medical history significant for hypothyroid, chronic pain syndrome, hypertension, COPD presented to the emergency department with episode of lightheadedness.. Patient does complain of worsening shortness of breath on top of her issues of chronic dyspnea. She denied any associated fever, chills, chest pain or neurological deficit * Workup initiated in ER included CBC which showed platelet count of 149. PT/INR within normal limits. Serum chemistry showed No 1164 of 32. Serial troponins obtained which remained negative. * TSH was 0.015 with PT INR within normal limits * Patient to be admitted to medical floor with consultation from cardiology for evaluation of symptomatic bradycardia * 06/14: Consultation obtained from cardiology. Bradycardia noted however patient asymptomatic. Lab work reviewed. Echocardiogram completed Objective - Vital Signs Vital signs: Vital Signs Temp 97.6 F 06/14/23 10:26 Pulse 57 L 06/14/23 12:12 Resp 16 06/14/23 12:12 BP 151/81 06/14/23 12:12 Pulse Ox 94 L 06/14/23 12:12 FiO2 Intake & Output 06/13/23 06/14/23 06/14/23 18:59 06:59 18:59 Intake Total 340 Balance 340 Intake: Oral 340 Other: Voiding Method Toilet Toilet Toilet # Voids 1 1 1 - Exam PHYSICAL EXAMINATION: GENERAL: The patient is alert and oriented x3, not in any acute distress. Well developed, well nourished. HEENT: Pupils are round and equally reacting to light. EOMI. No scleral icterus. No conjunctival pallor. Normocephalic, atraumatic. No pharyngeal erythema. No thyromegaly. CARDIOVASCULAR: S1 and S2 present. Sinus bradycardia noted PULMONARY: Chest is clear to auscultation, no wheezing or crackles. ABDOMEN: Soft, nontender, nondistended, normoactive bowel sounds. No palpable organomegaly. MUSCULOSKELETAL: No joint swelling or deformity. EXTREMITIES: No cyanosis, clubbing, or pedal edema. NEUROLOGICAL: Gross neurological examination did not reveal any focal deficits. SKIN: No rashes. - Labs CBC & Chem 7: 06/12/23 14:28 06/14/23 07:46 Labs: Abnormal Lab Results - Last 24 Hours (Table) 06/13/23 06/14/23 Range/Units 15:36 07:46 BUN 23 H (7-17) mg/dL Creatinine 1.18 H (0.52-1.04) mg/dL Glucose 123 H (74-99) mg/dL Calcium 8.2 L (8.4-10.2) mg/dL Ur Leukocyte Esterase Small H (Negative) Urine WBC 9 H (0-5) /hpf Urine Mucus Rare H (None) /hpf Assessment and Plan Assessment: Assessment and plan * Bradycardia symptomatic * Hypertension * Chronic pain syndrome * COPD * Hypothyroidism * Serial troponins and EKG obtained, cardiology consulted * Hold AV shelbie blocking agents, coronary discontinued * Continue patient on telemetry monitoring echocardiogram ordered * In regard to chronic pain syndrome continue home regimen including Percocet, gabapentin, fentanyl patch * In regards to history of hypothyroid continue patient on Synthyroid Prolene outpatient follow-up with PCP. For medication adjustment * CODE STATUS is full code
--- NOTE | 2023-06-14 16:17 | P.PN ---
Subjective HISTORY OF PRESENTING ILLNESS Patient is pleasant 77-year-old female with history of hypothyroidism, hyperlipidemia, asthma, GERD, prior Takotsubo's cardiomyopathy, restless leg syndrome, I will coronary arteries by heart catheterization 2014. She follows in the office with myself. Unfortunately over the last 1-2 days she has been having increased episodes of feeling lightheaded. Both the time this occurs when she is standing or walking however not necessarily when she goes from seated to standing position. She felt at times like she was going to pass out and therefore came to emergency department. She did have one episode in the ER where apparently her heart rate went down to 27 and she was somewhat lightheaded. She admits this felt somewhat similar to what was going on at home. She has been on the carvedilol as well as TSH was noted to be significantly low 0.015 however free T4 and free T3 borderline elevated 2.1 and 3.7 respectively. She denies any chest pain or pressure. She does have chronic dyspnea. She also has chronic mild lower extremity edema which appears more related to venous insufficiency. Telemetry reviewed with sinus bradycardia heart rates in the 40s to 50s as well as pauses up to 2.5 seconds. 06/14 Patient seen and examined. Patient's carvedilol has been held with heart rates in the higher 50s to 60s, sinus rhythm. She has not had any recurrence of the lightheadedness. No further significant pauses. Echo performed with EF 50-55% with mildly elevated RVSP. PHYSICAL EXAMINATION Vital signs reviewed. CONSTITUTIONAL: No apparent distress. HEENT: Head is normocephalic. Pupils are equal, round. Sclerae anicteric. Mucous membranes of the mouth are moist. No JVD. No carotid bruit. CHEST EXAMINATION: Lungs are clear to auscultation. No chest wall tenderness is noted on palpation or with deep breathing. HEART EXAMINATION: Regular rate and rhythm. S1, S2 heard. No murmurs, gallops or rub. ABDOMEN: Soft, nontender. Positive bowel sounds. EXTREMITIES: 2+ peripheral pulses, no lower extremity edema and no calf tenderness. NEUROLOGIC EXAMINATION: Patient is awake, alert and oriented x3. ASSESSMENT 1. Lightheadedness, may be related to bradycardia 2. Sinus bradycardia likely in part related to carvedilol as well as possibly thyroid 3. History of hypothyroidism, hyperthyroid by blood work 4. Chronic dyspnea 5. Hypertension 6. Normal coronary arteries by prior heart catheterization 7. Chronic diastolic heart failure PLAN Echo shows preserved EF with mildly elevated RVSP without significant valvular disease. She is not having any further major bradycardia and has been asymp tomatic off of the carvedilol. Appears stable for discharge home off of carvedilol with outpatient monitor which will be arranged on Friday. If symptoms of lightheadedness reoccur discussed calling our office are heading back to the emergency department. Would likely benefit from endocrinology ev aluation for her both thyroidism, currently hyperthyroid. Objective - Vital Signs Vital signs: Vital Signs Temp 97.6 F 06/14/23 10:26 Pulse 57 L 06/14/23 12:12 Resp 16 06/14/23 12:12 BP 151/81 06/14/23 12:12 Pulse Ox 94 L 06/14/23 12:12 FiO2 Intake & Output 06/13/23 06/14/23 06/14/23 18:59 06:59 18:59 Intake Total 340 780 Balance 340 780 Intake: Oral 340 780 Other: Voiding Method Toilet Toilet Toilet # Voids 1 1 1 - Labs CBC & Chem 7: 06/12/23 14:28 06/14/23 07:46 Labs: Abnormal Lab Results - Last 24 Hours (Table) 06/13/23 06/14/23 Range/Units 15:36 07:46 BUN 23 H (7-17) mg/dL Creatinine 1.18 H (0.52-1.04) mg/dL Glucose 123 H (74-99) mg/dL Calcium 8.2 L (8.4-10.2) mg/dL Ur Leukocyte Esterase Small H (Negative) Urine WBC 9 H (0-5) /hpf Urine Mucus Rare H (None) /hpf
[2023-06-14 16:40] VITALS: BP 140/74; PULSE 60; TEMP 97.8
--- NOTE | 2023-06-14 16:53 | P.DS ---
Providers Date of admission: 06/12/23 17:24 Expected date of discharge: 06/14/23 Attending physician: Abhijit Eugene Consults: 06/12/23 17:22 Consult Physician Urgent Consulting Provider: [facility] Consult Reason/Comments: Sinus bradycardia, near syncope Do you want consulting provider notified?: Yes Primary care physician: [facility] Course: * 77-year-old lady with past medical history significant for hypothyroid, chronic pain syndrome, hypertension, COPD presented to the emergency department with episode of lightheadedness.. Patient does complain of w orsening shortness of breath on top of her issues of chronic dyspnea. She denied any associated fever, chills, chest pain or neurological deficit * Workup initiated in ER included CBC which showed platelet count of 149. PT/INR within normal limits. Serum chemistry showed No 1164 of 32. Serial troponins obtained which remained negative. * TSH was 0.015 with PT INR within normal limits * Patient to be admitted to medical floor with consultation from cardiology for evaluation of symptomatic bradycardia * 06/14: Consultation obtained from cardiology. Bradycardia noted however patient asymptomatic. Lab work reviewed. Echocardiogram completed * Cleared fro DC By Cardiology Assessment: Bradycardia symptomatic IMPROVED * Hypertension * Chronic pain syndrome * COPD * Hypothyroidism * Serial troponins and EKG obtained, cardiology consulted * Hold AV shelbie blocking agents, coreg discontinued, NO NEED FOR PPM, EVENT MONIOT ROUTPATIENT * In regard to chronic pain syndrome continue home regimen including Percocet, gabapentin, fentanyl patch * In regards to history of hypothyroid continue patient on Synthyroid Prolene outpatient follow-up with PCP. For medication adjustment Patient Condition at Discharge: Stable Plan - Discharge Summary Discharge Rx Participant: No New Discharge Prescriptions: Continue Multivitamins, Thera [Multivitamin (formulary)] 1 tab PO DAILY Ascorbic Acid [Vitamin C] 1,000 mg PO DAILY oxyCODONE HCL/ACETAMINOPHEN [Percocet 10-325 mg] 1 tab PO TID PRN PRN Reason: Pain fentaNYL 75MCG/HR PATCH [Duragesic 75MCG/HR] 1 patch TRANSDERM Q72H Lovastatin [Mevacor] 40 mg PO HS Omeprazole 40 mg PO DAILY Levothyroxine Sodium [Synthroid] 175 mcg PO MOTUWETHFR@2100 rOPINIRole HCL [Requip] 2 mg PO TID Sertraline [Zoloft] 100 mg PO HS Calcium Carbonate 1,500 mg PO DAILY Albuterol Sulfate [Albuterol Sulfate Hfa] 1 - 2 puff PO RT-Q6H PRN PRN Reason: Shortness Of Breath allopurinoL [Zyloprim] 100 mg PO DAILY Zinc Gluconate [Zinc] 50 mg PO DAILY Cholecalciferol [Vitamin D3 (125 Mcg = 5000 Iu)] 125 mcg PO DAILY Furosemide [Lasix] 40 mg PO DAILY Fluticasone/Umeclidin/Vilanter [Trelegy Ellipta 200-62.5-25] 1 puff INHALATION RT-DAILY PRN PRN Reason: Shortness Of Breath Levothyroxine Sodium [Synthroid] 87.5 mcg PO JARAMILLO@2100 Gabapentin [Neurontin] 300 mg PO BID Ezetimibe [Zetia] 10 mg PO HS Ginkgo Biloba [place] Extract [Ginkgo Biloba] 125 mg PO DAILY Cyanocobalamin (Vitamin B-12) [Vitamin B-12] 1,000 mcg PO DAILY Discontinued carvediloL [Coreg] 12.5 mg PO BID Discharge Medication List Ascorbic Acid [Vitamin C] 1,000 mg PO DAILY 03/14/15 [History] Levothyroxine Sodium [Synthroid] 175 mcg PO MOTUWETHFR@2100 03/14/15 [History] Lovastatin [Mevacor] 40 mg PO HS 03/14/15 [History] Multivitamins, Thera [Multivitamin (formulary)] 1 tab PO DAILY 03/14/15 [History] Omeprazole 40 mg PO DAILY 03/14/15 [History] Sertraline [Zoloft] 100 mg PO HS 03/14/15 [History] fentaNYL 75MCG/HR PATCH [Duragesic 75MCG/HR] 1 patch TRANSDERM Q72H 03/14/15 [History] oxyCODONE HCL/ACETAMINOPHEN [Percocet 10-325 mg] 1 tab PO TID PRN 03/14/15 [History] rOPINIRole HCL [Requip] 2 mg PO TID 03/14/15 [History] Calcium Carbonate 1,500 mg PO DAILY 02/02/18 [History] Albuterol Sulfate [Albuterol Sulfate Hfa] 1 - 2 puff PO RT-Q6H PRN 06/12/23 [History] Cholecalciferol [Vitamin D3 (125 Mcg = 5000 Iu)] 125 mcg PO DAILY 06/12/23 [History] Cyanocobalamin (Vitamin B-12) [Vitamin B-12] 1,000 mcg PO DAILY 06/12/23 [History] Ezetimibe [Zetia] 10 mg PO HS 06/12/23 [History] Fluticasone/Umeclidin/Vilanter [Trelegy Ellipta 200-62.5-25] 1 puff INHALATION RT-DAILY PRN 06/12/23 [History] Furosemide [Lasix] 40 mg PO DAILY 06/12/23 [History] Gabapentin [Neurontin] 300 mg PO BID 06/12/23 [History] Ginkgo Biloba [place] Extract [Ginkgo Biloba] 125 mg PO DAILY 06/12/23 [History] Levothyroxine Sodium [Synthroid] 87.5 mcg PO JARAMILLO@2100 06/12/23 [History] Zinc Gluconate [Zinc] 50 mg PO DAILY 06/12/23 [History] allopurinoL [Zyloprim] 100 mg PO DAILY 06/12/23 [History] Follow up Appointment(s)/Referral(s): Geo Low MD [Primary Care Provider] - 1-2 days Merlin Pena DO [STAFF PHYSICIAN] - 1-2 Days Discharge Disposition: HOME SELF-CARE
--- NOTE | 2023-06-14 17:38 | CA ---
Transthoracic Echo Report Name: Mila Vazquez Age: 77 Gender: F : 1945 Exam Date: 06/14/2023 10:39 Exam Location: [facility] Ht (in): 66 Wt (lb): 160 Ordering Physician: Zaheer Whitlock MD Attending/Referring Phys: [employer] Technician Radha Santana RDCS Procedure CPT: Indications: Arrythmia Cardiac Hx: Technical Quality: Good Contrast 1: Total Dose (mL): Contrast 2: Total Dose (mL): MEASUREMENTS (Male / Female) Normal Values 2D ECHO LV Diastolic Diameter PLAX 5.1 cm 4.2 - 5.9 / 3.9 - 5.3 cm LV Systolic Diameter PLAX 3.8 cm IVS Diastolic Thickness 1.0 cm 0.6 - 1.0 / 0.6 - 0.9 cm LVPW Diastolic Thickness 0.9 cm 0.6 - 1.0 / 0.6 - 0.9 cm LV Relative Wall Thickness 0.4 RV Internal Dim ED PLAX 3.3 cm LA Systolic Diameter LX 4.3 cm 3.0 - 4.0 / 2.7 - 3.8 cm LV Diastolic Volume MOD 4C 102.8 cm??? LV Systolic Volume MOD 4C 50.1 cm??? LV Ejection Fraction MOD 4C 51.3 % LV Cardiac Index MOD 4C 1710.1 cm???/min???m??? LV Diastolic Length 4C 7.7 cm LV Systolic Length 4C 5.8 cm LV Diastolic Volume MOD 2C 101.0 cm??? LV Systolic Volume MOD 2C 44.3 cm??? LV Ejection Fraction MOD 2C 56.1 % LV Cardiac Index MOD 2C 1837.6 cm???/min???m??? LV Diastolic Length 2C 8.3 cm LV Systolic Length 2C 6.2 cm LA Volume 104.8 cm??? 18 - 58 / 22 - 52 cm??? M-MODE Aortic Root Diameter MM 3.1 cm MV E Point Septal Separation 0.8 cm AV Cusp Separation MM 2.1 cm DOPPLER AV Peak Velocity 138.4 cm/s AV Peak Gradient 7.7 mmHg AI Peak Velocity 377.1 cm/s AI Peak Gradient 56.9 mmHg AI Pressure Half Time 976.4 ms MV Area PHT 3.0 cm??? Mitral E Point Velocity 68.6 cm/s Mitral A Point Velocity 57.2 cm/s Mitral E to A Ratio 1.2 MV Deceleration Time 253.5 ms MV E' Velocity 8.7 cm/s Mitral E to MV E' Ratio 7.9 TR Peak Velocity 349.2 cm/s TR Peak Gradient 48.8 mmHg Right Ventricular Systolic Press 52.7 mmHg FINDINGS Left Ventricle Left ventricular ejection fraction is estimated at 50-55 %. Left ventricular cavity size normal. Mildly increased septal wall thickness. Right Ventricle Mild right ventricular dilatation. Moderate pulmonary hypertension. Right ventricular systolic pressure estimated at 53 mm hg. Right Atrium Normal right atrial size. Left Atrium Moderately increased left atrial diameter. Severely increased left atrial volume. Mildly increased left atrial area. Mitral Valve Mitral valve thickened. [id number] mitral regurgitation. Aortic Valve Trileaflet aortic valve. Aortic valve sclerosis. Mild aortic regurgitation. Tricuspid Valve Structurally normal tricuspid valve. Mild tricuspid regurgitation. Pulmonic Valve Structurally normal pulmonic valve. Moderate pulmonic regurgitation. Pericardium No pericardial effusion. Aorta Normal size aortic root and proximal ascending aorta. CONCLUSIONS Left ventricular ejection fraction 50-55% Mild right ventricular dilation RVSP 53 Moderate to severely dilated left atrium [id number] mitral regurgitation and mild aortic regurgitation Previewed by: Dr. Merlin Pena DO (Electronically Signed) Final Date: 14 June 2023 17:37
[2023-06-16] MEDS ORDERED: LEVOTHYROXINE 88 MCG TAB PO SCH (21:00)
== END 2023-06-14 17:21 | disposition home or self-care (01) | DRG 309 ==
LOC: EC 14:06 → 3SCARD 17:24
PROVIDERS: ADMIT Hospitalist; ATTEND Hospitalist
DX: R00.1 Bradycardia, unspecified (principal); I50.32 Chronic diastolic (congestive) heart failure; I51.81 Takotsubo syndrome; J44.9 Chronic obstructive pulmonary disease, unspecified; E89.0 Postprocedural hypothyroidism; G25.81 Restless legs syndrome; E05.90 Thyrotoxicosis, unspecified without thyrotoxic crisis or storm; R42 Dizziness and giddiness; T44.7X5A Adverse effect of beta-adrenoreceptor antagonists, initial encounter; G89.4 Chronic pain syndrome; K21.9 Gastro-esophageal reflux disease without esophagitis; M54.9 Dorsalgia, unspecified; I87.2 Venous insufficiency (chronic) (peripheral); E78.5 Hyperlipidemia, unspecified; Z96.653 Presence of artificial knee joint, bilateral; Z79.890 Hormone replacement therapy; Z79.899 Other long term (current) drug therapy; Z79.51 Long term (current) use of inhaled steroids; Z87.11 Personal history of peptic ulcer disease; Z98.1 Arthrodesis status; Z87.891 Personal history of nicotine dependence; Z98.61 Coronary angioplasty status; Z88.8 Allergy status to other drugs, medicaments and biological substances; Z91.048 Other nonmedicinal substance allergy status; Z82.49 Family history of ischemic heart disease and other diseases of the circulatory system
CPT/HCPCS: 36415; 71046; 80048; 80053; 81001; 83735; 84439; 84443; 84481; 84484; 85025; 85610; 85730; 93005; 93306; 94640; 94760; 96360; 99285

== ENCOUNTER → 2024-07-14 | Outpatient (CLI) | payer MEDICARE ==
--- NOTE | 2024-07-14 10:32 | US ---
EXAMINATION TYPE: US abdomen complete DATE OF EXAM: 07/14/2024 COMPARISON: CT CLINICAL INDICATION: Female, 78 years old with history of R10.9 ABDOMINAL PAIN; Pt states ABD pain, m ore on right lower side TECHNIQUE: Grayscale and color Doppler imaging of the abdomen was performed. FINDINGS: EXAM MEASUREMENTS: Liver Length: 15.0 cm Gallbladder Wall: 0.2 cm CBD: 0.5 cm Spleen: 9.1 cm Right Kidney: 9.5 x 3.6 x 3.7 cm Left Kidney: 9.2 x 3.8 x 4.1 cm [employer] NOTES: Pancreas: wnl, tail obscured by overlying bowel gas Liver: Limited views appeared wnl Gallbladder: Appeared contracted, pt states she is NPO Evidence for sonographic Yates's sign: No CBD: wnl Spleen: wnl Right Kidney: No evidence of hydro, multiple probable calculi, largest= 1.1 cm Left Kidney: No evidence of hydro, multiple probable calculi, largest= 0.8 cm Upper IVC: wnl Abd Aorta: Obscured by overlying bowel gas Right lower abdomen where pt feels palpable there is a solid area with shadowing= 6.1 x 2.8 cm ?etiol ogy IMPRESSION: 1. In the area of palpable abnormality there is a 6.1 x 2.8 cm solid-appearing hypoechoic area. This is incompletely evaluated by ultrasound recommend CT scan. 2. Nonobstructing bilateral nephrolithiasis. [facility], Workstation: [email or web address], 07/14/2024 10:30 AM
== END | disposition home or self-care (01) ==
LOC: RADUSWWP 07:13
PROVIDERS: ATTEND Internal Medicine Geriatric Medicine
DX: N20.0 Calculus of kidney (principal)
CPT/HCPCS: 76700

== ENCOUNTER → 2024-08-18 | Outpatient (CLI) | payer MEDICARE ==
--- NOTE | 2024-08-18 16:54 | CT ---
EXAMINATION TYPE: CT abdomen pelvis wo con DATE OF EXAM: 08/18/2024 4:39 PM COMPARISON: 02/02/2018 CLINICAL INDICATION: Female, 78 years old with history of R10.9 RIGHT LOWER QUADRANT PAIN Z12.31 ENCN TR SCRE; abdominal pain TECHNIQUE: Axial CT abdomen pelvis wo con;Sagittal and coronal reformats were created on a separate workstation. Contrast used: mL of , (none if empty) Oral contrast used: with Oral Contrast (none if empty) CT DLP: 652 mGycm, Automated exposure control for dose reduction was used. FINDINGS: LOWER CHEST: There is mildly enlarged for size. ABDOMEN LIVER: Unremarkable GALLBLADDER AND BILE DUCTS: Unremarkable. PANCREAS: Unremarkable. SPLEEN: Unremarkable. ADRENAL GLANDS: Unremarkable. KIDNEYS AND URETERS: No evidence of hydronephrosis or renal calculus. The ureters are unremarkable. Nodule bilateral renal calculi. Largest on the right measuring up to 11 mm and on the left measuring up to 5 mm. Right renal cyst present. PELVIS Limited evaluation of the pelvis due to streak artifact from hip arthroplasties. BLADDER: No evidence for wall thickening or mass given limitations of exam. REPRODUCTIVE: Unremarkable. ABDOMEN & PELVIS Evaluation the pelvis due to streak artifact. STOMACH AND BOWEL: No evidence of bowel obstruction. PERITONEUM/RETROPERITONEUM: No evidence of pneumoperitoneum or free fluid. VASCULATURE: No evidence of aortic aneurysm. Tortuous aorta throughout the abdomen with moderate athe rosclerosis. MUSCULOSKELETAL: Severe degeneration changes of the spine with scoliosis and fixation hardware. Fixat ion changes of the bilateral hips with arthroplasty changes. Hardware appears intact. LYMPH NODES: No gross evidence for lymphadenopathy. SOFT TISSUE/ABDOMINAL WALL: Diastases of the rectus abdominis. There is a right inguinal hernia conta ining the cecum. IMPRESSION: 1. Limited evaluation of the pelvis. 2. Right inguinal hernia containing part of the cecum. No evidence for complete obstruction. 3. Diastases of the rectus abdominis musculature. 4. Mild cardiomegaly. 5. Bilateral nonobstructing renal calculi. No evidence for hydronephrosis. Distal ureters and bladde r are limited. 6. Fixation hardware in the spine and bilateral hips appears intact. [facility], , 08/18/2024 4:51 PM
--- NOTE | 2024-08-20 22:37 | MM ---
Reason for Exam: Screening (asymptomatic). Last mammogram was performed 1 year(s) and 11 month(s) ago. Patient History: Menarche at age 14. First Full-Term at age 19. Postmenopausal. Estrogen for 8 years from age 48 until age 56. Hormonal Contraceptives for 3 years from age 23 until age 26. Cyst Aspiration on the Left side. Excisional Biopsy on the Right side. 06/18/2002, Benign Stereotactic Core Biopsy on the left side. Sister had breast cancer, age 59. Sister had breast cancer. Risk Values: Nneka 5 year model risk: 12.2%. NCI Lifetime model risk: 23.1%. Prior Study Comparison: 05/26/2020 Bilateral Screening Mammogram, [facility]. 06/27/2021 Bilateral Screening Mammogram, [facility]. 09/18/2022 Bilateral MG 3D screening mammo w/cad, [facility]. Tissue Density: There are scattered areas of fibroglandular density. Findings: Analyzed By CAD. The pattern is symmetrical. Benign vascular calcifications present bilaterally. Bilateral core markers are present. No significant interval change No suspicious groups of microcalcifications, spiculated or lobular masses, architectural distortion or other secondary signs of malignancy are mammographically apparent. Overall Assessment: Benign, BI-RAD 2 Management: Screening Mammogram of both breasts in 1 year. A negative mammogram report should not preclude additional follow up of suspicious palpable abnormalities. Patient should continue monthly self breast exam. A clinical breast exam by your physician is recommended on an annual basis and results should be correlated with mammographic findings. Note on Nneka scores and lifetime risk: 1. A Nneka score greater than 3% is considered moderate risk. If this is the case, consider specialist referral to assess eligibility for a risk reducing agent. 2. If overall lifetime risk for the development of breast cancer is 20% or higher, the patient may qualify for future screening with alternating mammogram and breast MRI. [facility], , 08/20/2024 10:34 PM. Electronically signed and approved by: Lloyd Cat D.O. Radiologis
== END | disposition home or self-care (01) ==
LOC: RADMAMWWP 14:41
PROVIDERS: ATTEND Internal Medicine Geriatric Medicine
DX: Z12.31 Encounter for screening mammogram for malignant neoplasm of breast (principal); R92.323 Mammographic fibroglandular density, bilateral breasts; K40.90 Unilateral inguinal hernia, without obstruction or gangrene, not specified as recurrent; N20.0 Calculus of kidney; R93.5 Abnormal findings on diagnostic imaging of other abdominal regions, including retroperitoneum; I51.7 Cardiomegaly; Z78.0 Asymptomatic menopausal state; Z80.3 Family history of malignant neoplasm of breast
CPT/HCPCS: 74176; 77063; 77067